=== PATIENT | male | born 1950 | race Caucasian/White ===

== ENCOUNTER 2017-05-29 23:28 | Inpatient (IN) | payer MEDICARE, MEDICAID ==
[~2017-05-29] VITALS: Ht 170.2 cm; Wt 154.5 kg
[~2017-05-29 23:28] MED LIST: ADV50500 IH; ALBU18HF2 IH; LISI-600 PO; NITR0.4T51 SL; ONDA8TAB9 PO; OXYC15TA88 PO
[2017-05-30 00:11] LABS: BASOPHILS % (AUTO) 0.1 % (0-1); EOSINOPHILS % (AUTO) 0.1 % (0-6); HEMATOCRIT 47.5 % (42.0-52.0); HEMOGLOBIN 16.3 g/dl (14.0-17.9); LYMPHOCYTES # (AUTO) 0.5 X10'3 (1.1-4.8); LYMPHOCYTES % (AUTO) 2.6 % (21-51); MEAN CORPUSCULAR HEMOGLOBIN 29.1 PG (27.0-31.0); MEAN CORPUSCULAR HGB CONC 34.2 % (33.0-36.5); MEAN CORPUSCULAR VOLUME 85.1 FL (78-98); MONOCYTES % (AUTO) 5.3 % (2-12); NEUTROPHILS # (AUTO) 17.8 X10'3 (1.8-7.7); NEUTROPHILS % (AUTO) 91.9 % (42-75); PLATELET COUNT 181 X10'3 (140-440); RED BLOOD COUNT 5.58 X10'6 (4.70-6.10); RED CELL DISTRIBUTION WIDTH 13.6 % (11.5-14.5); WHITE BLOOD COUNT 19.3 X10'3 (4.5-11.0)
[2017-05-30 00:26] LABS: PROTHROMBIN TIME 10.6 SECONDS (9.0-12.0)
[2017-05-30] MEDS ORDERED: normal saline 1000ML IV soln IVB ONE ×2 (00:30→02:05)
[2017-05-30 00:36] LABS: ALANINE AMINOTRANSFERASE 24 U/L (12-78); ALBUMIN 3.6 G/DL (3.4-5.0); ALBUMIN/GLOBULIN RATIO 0.9 (1.1-1.5); ALKALINE PHOSPHATASE 70 IU/L (46-116); AMYLASE 103 U/L (25-115); ANION GAP 9 (8-16); ASPARTATE AMINO TRANSFERASE 20 U/L (10-37); BILIRUBIN,TOTAL 0.9 MG/DL (0.1-1.0); BLOOD UREA NITROGEN 26 MG/DL (7-18); CALCIUM 9.2 MG/DL (8.5-10.1); CHLORIDE 107 MMOL/L (99-107); GLUCOSE 209 MG/DL (70-104); LIPASE 484 U/L (73-393); POTASSIUM 4.1 MMOL/L (3.5-5.1); SODIUM 142 MMOL/L (135-145); TOTAL CARBON DIOXIDE 26.4 MMOL/L (24-32); TOTAL PROTEIN 7.7 G/DL (6.4-8.2); eGFR 55 ML/MIN
[2017-05-30] MEDS ORDERED: ondansetron/PF 4mg/2ml inj IV ONE (02:30)
[2017-05-30] MEDS ORDERED: levoFLOXACIN-Levaquin 750MG/D5 150 ML IV ONE (03:00)
[2017-05-30] MEDS ORDERED: CefTRIAXone 2gm/NS 100ml IVPB 100 ML IV ONE (03:00)
[2017-05-30] MEDS ORDERED: magnesium hydroxide 30ml (MOM) UD suspension PO PRN (03:05)
[2017-05-30] MEDS ORDERED: acetaminophen 325mg tablet PO PRN ×2 (03:05)
[2017-05-30] MEDS ORDERED: diphenhydrAMINE 50 mg/ml inj IV PRN (03:05)
[2017-05-30] MEDS ORDERED: mag hydrox/Alum hydrox/simeth 30ml oral suspension PO PRN (03:05)
[2017-05-30] MEDS ORDERED: diphenhydrAMINE 25mg capsule PO PRN (03:05)
[2017-05-30] MEDS ORDERED: MESSAGE TO PHARMACY PO ONE (03:05)
[2017-05-30] MEDS ORDERED: glucagon, human recombinant 1mg kit SUBCUT PRN (03:05)
[2017-05-30] MEDS ORDERED: HYDROcodone/acetaminophen 10/325mg tab PO PRN (03:05)
[2017-05-30] MEDS ORDERED: insulin Lispro (HumaLOG) vial - multi-dose SQ SCH (03:05)
[2017-05-30] MEDS ORDERED: dextrose ORAL solution 15 GM/59 ML bottle PO PRN ×2 (03:05)
[2017-05-30] MEDS ORDERED: morphine 2 MG/ML inj. syringe IV PRN (03:05)
[2017-05-30] MEDS ORDERED: dextrose 50%-water 50ml dispensing syringe IV PRN ×2 (03:05)
[2017-05-30] MEDS ORDERED: non-formulary drug (Albuterol Sulfate (Ventolin Hfa) 2 PUFFS) IH SCH (03:15)
[2017-05-30] MEDS ORDERED: nitroGLYCERIN 0.4mg SUBLingual tab SL PRN (03:15)
[2017-05-30 03:36] LABS: CLARITY,URINE CLEAR (Clear); COLOR,URINE YELLOW (Yellow); GLUCOSE, URINE NEGATIVE (Neg); KETONES,URINE NEGATIVE (Neg); LEUKOCYTE ESTERASE ,URINE NEGATIVE (Neg); NITRITES, URINE NEGATIVE (Neg); OCCULT BLOOD,URINE NEGATIVE (Neg); PH,URINE 5.5 (4.8-8.0); PROTEIN,URINE NEGATIVE (Neg); UROBILINOGEN,URINE 0.2 E.U/dL (0.2-1.0)
[2017-05-30 03:52] LABS: UA COLLECTION TYPE CLN CATCH MIDSTREAM
[2017-05-30 04:14] LABS: HEMOGLOBIN A1C 5.6 % (4.5-6.2)
[2017-05-30] MEDS ORDERED: albuterol 2.5 MG/3 ML nebule NEB PRN (04:25)
[2017-05-30] MEDS ORDERED: oxyCODONE IR 5mg (immed. release) tablet PO PRN (04:25)
[2017-05-30 04:36] LABS: OCCULT BLOOD STOOL NEGATIVE (Neg)
[2017-05-30] MEDS: normal saline 1000ml 1,000 ML IV SCH ×3 (04:56→23:04)
[2017-05-30] MEDS ORDERED: SALMETEROL IH SCH (08:00)
[2017-05-30] MEDS ORDERED: FLUTICASONE IH SCH (08:00)
[2017-05-30 08:35] VITALS: BP 132/105
[2017-05-30] MEDS: lisinopril 20mg tablet PO SCH (09:44)
[2017-05-30] MEDS: enoxaparin 40mg/0.4ml syringe SUBCUT SCH (09:45)
[2017-05-30 11:00] VITALS: BP 130/67
[2017-05-30 15:00] VITALS: BP 134/68
[2017-05-30 19:00] VITALS: BP 102/64
[2017-05-30] MEDS: ondansetron/PF 4mg/2ml inj IV PRN (19:57)
[2017-05-30] MEDS: pantoprazole 40 MG vial IV SCH (19:57)
[2017-05-30] MEDS: insulin glargine (Lantus) pen - multi-dose SQ SCH (21:00)
[2017-05-30] MEDS ORDERED: temazepam 15mg capsule PO PRN (21:00)
[2017-05-30 22:00] VITALS: BP 106/44
[2017-05-30] MEDS: fluticasone/vilanterol 200mcg/25mcg inhaler IH SCH (23:24)
[2017-05-31] MEDS: normal saline 1000ml 1,000 ML IV SCH ×2 (02:12→20:31)
[2017-05-31 02:28] VITALS: BP 121/66
[2017-05-31] MEDS: levoFLOXACIN-Levaquin 750MG/D5 150 ML IV SCH ×2 (04:00→08:10)
[2017-05-31 06:00] VITALS: BP_SYST 104; BP_SYST 133; BP_DIAS 48; BP_DIAS 67
[2017-05-31 06:19] LABS: BASOPHILS % (AUTO) 0.3 % (0-1); EOSINOPHILS # (AUTO) 0.1 X10'3 (0-0.9); EOSINOPHILS % (AUTO) 1.2 % (0-6); HEMATOCRIT 40.1 % (42.0-52.0); HEMOGLOBIN 14.1 g/dl (14.0-17.9); LYMPHOCYTES # (AUTO) 1.2 X10'3 (1.1-4.8); LYMPHOCYTES % (AUTO) 10.3 % (21-51); MEAN CORPUSCULAR HEMOGLOBIN 29.6 PG (27.0-31.0); MEAN CORPUSCULAR VOLUME 84.7 FL (78-98); MEAN PLATELET VOLUME 7.6 FL (7.4-10.4); MONOCYTES # (AUTO) 1.3 X10'3 (0-0.9); NEUTROPHILS # (AUTO) 9.1 X10'3 (1.8-7.7); NEUTROPHILS % (AUTO) 77.2 % (42-75); PLATELET COUNT 135 X10'3 (140-440); RED BLOOD COUNT 4.74 X10'6 (4.70-6.10); RED CELL DISTRIBUTION WIDTH 13.9 % (11.5-14.5); WHITE BLOOD COUNT 11.8 X10'3 (4.5-11.0)
[2017-05-31 06:40] LABS: ALBUMIN 2.6 G/DL (3.4-5.0); ANION GAP 8 (8-16); BLOOD UREA NITROGEN 16 MG/DL (7-18); BUN/CREATININE RATIO 14.2 (5.4-32.0); CALCIUM 7.9 MG/DL (8.5-10.1); CHLORIDE 109 MMOL/L (99-107); CREATININE 1.13 MG/DL (0.60-1.10); GLUCOSE 101 MG/DL (70-104); MAGNESIUM 1.8 MG/DL (1.5-2.4); POTASSIUM 4.1 MMOL/L (3.5-5.1); SODIUM 145 MMOL/L (135-145); eGFR 65 ML/MIN
[2017-05-31] MEDS: lisinopril 20mg tablet PO SCH (08:10)
[2017-05-31] MEDS: pantoprazole 40 MG vial IV SCH (08:10)
[2017-05-31] MEDS: enoxaparin 40mg/0.4ml syringe SUBCUT SCH (08:11)
[2017-05-31] MEDS: fluticasone/vilanterol 200mcg/25mcg inhaler IH SCH (08:12)
[2017-05-31 15:00] VITALS: BP 105/69
[2017-05-31 18:00] VITALS: BP 151/52
[2017-05-31] MEDS: insulin glargine (Lantus) pen - multi-dose SQ SCH (21:00)
[2017-05-31] MEDS ORDERED: diltiazem-D5W 125mg/125ml 125 ML IV SCH (21:40)
[2017-05-31 22:00] VITALS: BP 137/72
[2017-06-01] VITALS (11 sets, daily range): BP systolic 117–147; BP diastolic 46–85
[2017-06-01] MEDS: normal saline 1000ml 1,000 ML IV SCH ×2 (05:39→14:35)
[2017-06-01 06:53] LABS: BASOPHILS # (AUTO) 0.1 X10'3 (0-0.2); BASOPHILS % (AUTO) 0.6 % (0-1); EOSINOPHILS # (AUTO) 0.2 X10'3 (0-0.9); EOSINOPHILS % (AUTO) 2.1 % (0-6); HEMATOCRIT 40.9 % (42.0-52.0); LYMPHOCYTES # (AUTO) 1.3 X10'3 (1.1-4.8); LYMPHOCYTES % (AUTO) 12.8 % (21-51); MEAN CORPUSCULAR HEMOGLOBIN 29.3 PG (27.0-31.0); MEAN CORPUSCULAR HGB CONC 34.2 % (33.0-36.5); MEAN CORPUSCULAR VOLUME 85.6 FL (78-98); MEAN PLATELET VOLUME 8.3 FL (7.4-10.4); MONOCYTES # (AUTO) 1.2 X10'3 (0-0.9); MONOCYTES % (AUTO) 11.9 % (2-12); NEUTROPHILS # (AUTO) 7.6 X10'3 (1.8-7.7); NEUTROPHILS % (AUTO) 72.6 % (42-75); PLATELET COUNT 130 X10'3 (140-440); RED BLOOD COUNT 4.78 X10'6 (4.70-6.10); RED CELL DISTRIBUTION WIDTH 13.6 % (11.5-14.5); WHITE BLOOD COUNT 10.4 X10'3 (4.5-11.0)
[2017-06-01 06:58] LABS: ALBUMIN 2.4 G/DL (3.4-5.0); ANION GAP 8 (8-16); BLOOD UREA NITROGEN 16 MG/DL (7-18); BUN/CREATININE RATIO 14.5 (5.4-32.0); CALCIUM 8.2 MG/DL (8.5-10.1); CHLORIDE 107 MMOL/L (99-107); GLUCOSE 99 MG/DL (70-104); MAGNESIUM 1.9 MG/DL (1.5-2.4); SODIUM 142 MMOL/L (135-145); TOTAL CARBON DIOXIDE 27.1 MMOL/L (24-32); eGFR 67 ML/MIN
[2017-06-01] MEDS: fluticasone/vilanterol 200mcg/25mcg inhaler IH SCH (08:00)
[2017-06-01] MEDS ORDERED: potassium Cl 20 mEq SR tablet PO SCH (08:30)
[2017-06-01] MEDS: pantoprazole 40 MG vial IV SCH (08:47)
[2017-06-01] MEDS: furosemide 20 MG/2 ML vial IV SCH ×2 (08:47→19:51)
[2017-06-01] MEDS: levoFLOXACIN-Levaquin 750MG/D5 150 ML IV SCH (08:47)
[2017-06-01] MEDS: lisinopril 20mg tablet PO SCH (08:47)
[2017-06-01] MEDS: enoxaparin 40mg/0.4ml syringe SUBCUT SCH (08:48)
[2017-06-01] MEDS: diltiazem 30mg tablet PO SCH ×2 (13:58→19:34)
[2017-06-01] MEDS: lactobacillus rhamnosus 10,000 MMU CELLS/CAPSULE PO SCH (19:34)
[2017-06-01] MEDS: insulin glargine (Lantus) pen - multi-dose SQ SCH (21:00)
[2017-06-01] MEDS: potassium chloride 10mEq ER tablet PO SCH (21:16)
[2017-06-02] MEDS: diltiazem 30mg tablet PO SCH ×4 (02:53→19:16)
[2017-06-02 03:00] VITALS: BP 116/69
[2017-06-02] MEDS: normal saline 1000ml 1,000 ML IV SCH ×2 (03:10→11:04)
[2017-06-02 06:00] VITALS: BP 127/78
[2017-06-02 06:04] LABS: BASOPHILS % (AUTO) 0.5 % (0-1); EOSINOPHILS # (AUTO) 0.3 X10'3 (0-0.9); EOSINOPHILS % (AUTO) 3.9 % (0-6); HEMATOCRIT 40.6 % (42.0-52.0); HEMOGLOBIN 14.3 g/dl (14.0-17.9); LYMPHOCYTES # (AUTO) 1.4 X10'3 (1.1-4.8); MEAN CORPUSCULAR HEMOGLOBIN 29.4 PG (27.0-31.0); MEAN CORPUSCULAR HGB CONC 35.2 % (33.0-36.5); MEAN CORPUSCULAR VOLUME 83.5 FL (78-98); MONOCYTES # (AUTO) 0.8 X10'3 (0-0.9); MONOCYTES % (AUTO) 10.9 % (2-12); NEUTROPHILS % (AUTO) 66.7 % (42-75); PLATELET COUNT 150 X10'3 (140-440); RED BLOOD COUNT 4.87 X10'6 (4.70-6.10); RED CELL DISTRIBUTION WIDTH 12.9 % (11.5-14.5); WHITE BLOOD COUNT 7.5 X10'3 (4.5-11.0)
[2017-06-02 06:17] LABS: ALBUMIN 2.5 G/DL (3.4-5.0); ANION GAP 7 (8-16); BLOOD UREA NITROGEN 14 MG/DL (7-18); BUN/CREATININE RATIO 13.3 (5.4-32.0); CALCIUM 8.4 MG/DL (8.5-10.1); CHLORIDE 107 MMOL/L (99-107); CREATININE 1.05 MG/DL (0.60-1.10); GLUCOSE 104 MG/DL (70-104); MAGNESIUM 1.8 MG/DL (1.5-2.4); POTASSIUM 4.1 MMOL/L (3.5-5.1); SODIUM 144 MMOL/L (135-145); TOTAL CARBON DIOXIDE 29.9 MMOL/L (24-32); eGFR 71 ML/MIN
[2017-06-02] MEDS: furosemide 20 MG/2 ML vial IV SCH ×2 (08:00→19:16)
[2017-06-02] MEDS: fluticasone/vilanterol 200mcg/25mcg inhaler IH SCH (08:00)
[2017-06-02] MEDS: potassium chloride 10mEq ER tablet PO SCH ×2 (08:00→19:16)
[2017-06-02] MEDS: levoFLOXACIN-Levaquin 750MG/D5 150 ML IV SCH (08:03)
[2017-06-02] MEDS: pantoprazole 40mg Tablet.DR PO SCH (08:03)
[2017-06-02] MEDS: lisinopril 20mg tablet PO SCH (08:03)
[2017-06-02] MEDS: lactobacillus rhamnosus 10,000 MMU CELLS/CAPSULE PO SCH ×2 (08:04→19:16)
[2017-06-02] MEDS: enoxaparin 40mg/0.4ml syringe SUBCUT SCH (08:05)
[2017-06-02 11:00] VITALS: BP 128/85
[2017-06-02] MEDS ORDERED: furosemide 20 MG/2 ML vial IV ONE (12:10)
[2017-06-02] MEDS ORDERED: FURO20TA4 (12:58)
[2017-06-02] MEDS ORDERED: ASPI-1264 PO (12:59)
[2017-06-02 13:28] LABS: GASTRIC OCCULT BLOOD NEGATIVE (Neg)
[2017-06-02 15:00] VITALS: BP 146/78
[2017-06-02 19:00] VITALS: BP 136/75
[2017-06-02] MEDS: insulin glargine (Lantus) pen - multi-dose SQ SCH (21:00)
[2017-06-02] MEDS: ondansetron/PF 4mg/2ml inj IV PRN (22:25)
[2017-06-02 23:00] VITALS: BP 101/66
[2017-06-03 03:00] VITALS: BP 124/65
[2017-06-03] MEDS: diltiazem 30mg tablet PO SCH ×2 (03:05→08:53)
[2017-06-03 06:49] LABS: BASOPHILS % (AUTO) 0.4 % (0-1); EOSINOPHILS # (AUTO) 0.3 X10'3 (0-0.9); EOSINOPHILS % (AUTO) 3.9 % (0-6); HEMATOCRIT 47.7 % (42.0-52.0); HEMOGLOBIN 16.5 g/dl (14.0-17.9); LYMPHOCYTES # (AUTO) 1.3 X10'3 (1.1-4.8); MEAN CORPUSCULAR HEMOGLOBIN 29.4 PG (27.0-31.0); MEAN CORPUSCULAR HGB CONC 34.6 % (33.0-36.5); MEAN CORPUSCULAR VOLUME 84.9 FL (78-98); MEAN PLATELET VOLUME 7.8 FL (7.4-10.4); MONOCYTES # (AUTO) 0.9 X10'3 (0-0.9); MONOCYTES % (AUTO) 10.8 % (2-12); NEUTROPHILS # (AUTO) 6.1 X10'3 (1.8-7.7); NEUTROPHILS % (AUTO) 69.9 % (42-75); PLATELET COUNT 178 X10'3 (140-440); RED BLOOD COUNT 5.61 X10'6 (4.70-6.10); RED CELL DISTRIBUTION WIDTH 13.1 % (11.5-14.5); WHITE BLOOD COUNT 8.8 X10'3 (4.5-11.0)
[2017-06-03 07:00] VITALS: BP 142/85
[2017-06-03 07:07] LABS: ALBUMIN 2.9 G/DL (3.4-5.0); ANION GAP 12 (8-16); BLOOD UREA NITROGEN 16 MG/DL (7-18); BUN/CREATININE RATIO 13.8 (5.4-32.0); CALCIUM 9.1 MG/DL (8.5-10.1); CHLORIDE 104 MMOL/L (99-107); CREATININE 1.16 MG/DL (0.60-1.10); GLUCOSE 107 MG/DL (70-104); POTASSIUM 3.9 MMOL/L (3.5-5.1); SODIUM 142 MMOL/L (135-145); TOTAL CARBON DIOXIDE 25.9 MMOL/L (24-32); eGFR 63 ML/MIN
[2017-06-03] MEDS: potassium chloride 10mEq ER tablet PO SCH (08:53)
[2017-06-03] MEDS: lisinopril 20mg tablet PO SCH (08:53)
[2017-06-03] MEDS: lactobacillus rhamnosus 10,000 MMU CELLS/CAPSULE PO SCH (08:53)
[2017-06-03] MEDS: pantoprazole 40mg Tablet.DR PO SCH (08:53)
[2017-06-03] MEDS: enoxaparin 40mg/0.4ml syringe SUBCUT SCH (08:54)
[2017-06-03] MEDS: furosemide 20 MG/2 ML vial IV SCH (08:54)
[2017-06-03] MEDS ORDERED: DILT30TA5 PO (09:29)
[2017-06-03 11:00] VITALS: BP 128/84
[2017-06-03] MEDS ORDERED: levoFLOXACIN 750MG TABLET PO SCH (11:00)
== END 2017-06-03 13:00 | disposition home or self-care (01) | DRG 871 ==
LOC: ER 23:30 → ED HOLD 05-30 03:04 → PCU 3S 05-30 08:26
PROVIDERS: ADMIT Hospitalist; ATTEND Family Medicine
DX: A41.9 Sepsis, unspecified organism (principal); K85.90 Acute pancreatitis without necrosis or infection, unspecified; E11.51 Type 2 diabetes mellitus with diabetic peripheral angiopathy without gangrene; E11.622 Type 2 diabetes mellitus with other skin ulcer; L97.929 Non-pressure chronic ulcer of unspecified part of left lower leg with unspecified severity; J44.1 Chronic obstructive pulmonary disease with (acute) exacerbation; I48.91 Unspecified atrial fibrillation; J22 Unspecified acute lower respiratory infection; J20.9 Acute bronchitis, unspecified; K57.90 Diverticulosis of intestine, part unspecified, without perforation or abscess without bleeding; I87.8 Other specified disorders of veins; F32.9 Major depressive disorder, single episode, unspecified; G89.29 Other chronic pain; K80.20 Calculus of gallbladder without cholecystitis without obstruction; N28.1 Cyst of kidney, acquired; R06.03 Acute respiratory distress; I10 Essential (primary) hypertension; N28.89 Other specified disorders of kidney and ureter; I89.0 Lymphedema, not elsewhere classified; I25.10 Atherosclerotic heart disease of native coronary artery without angina pectoris; K21.9 Gastro-esophageal reflux disease without esophagitis; K40.90 Unilateral inguinal hernia, without obstruction or gangrene, not specified as recurrent; I25.2 Old myocardial infarction; Z90.49 Acquired absence of other specified parts of digestive tract; Z79.899 Other long term (current) drug therapy; Z87.891 Personal history of nicotine dependence
CPT/HCPCS: 36415; 71045; 74176; 76775; 80048; 80053; 81003; 82150; 82271; 82272; 82948; 83036; 83605; 83690; 83735; 83880; 84484; 85025; 85610; 86885; 86900; 86901; 87040; 87070; 87502; 87503; 93005; 93306; 94640; 94760; 96361; 96374; 97110; 97116; 99285; A6213; C9113; J0696; J1200; J1650; J1815; J1940; J1956; J2405; J3490; J7030; Q0163

== ENCOUNTER 2019-11-28 10:25 | Day surgery (SDC) | payer BC, MEDICAID ==
[~2019-11-28 10:25] MED LIST changes: +ASPI-1264 PO; +DILT30TA5 PO; +FURO20TA4; -ONDA8TAB9 PO; +OXYC15TA PO; -OXYC15TA88 PO
[2019-11-28] MEDS ORDERED: LIDOcaine 2% 5ml jelly ONE (11:54)
== END 2019-11-28 13:12 | disposition home or self-care (01) ==
LOC: WOUND CARE 10:25
PROVIDERS: ATTEND Nurse Practitioner
DX: E11.622 Type 2 diabetes mellitus with other skin ulcer (principal); I83.222 Varicose veins of left lower extremity with both ulcer of calf and inflammation; L97.222 Non-pressure chronic ulcer of left calf with fat layer exposed; I83.12 Varicose veins of left lower extremity with inflammation; I13.0 Hypertensive heart and chronic kidney disease with heart failure and stage 1 through stage 4 chronic kidney disease, or unspecified chronic kidney disease; I50.33 Acute on chronic diastolic (congestive) heart failure; N18.9 Chronic kidney disease, unspecified; E11.51 Type 2 diabetes mellitus with diabetic peripheral angiopathy without gangrene; I25.110 Atherosclerotic heart disease of native coronary artery with unstable angina pectoris; I89.0 Lymphedema, not elsewhere classified; J30.1 Allergic rhinitis due to pollen; K21.9 Gastro-esophageal reflux disease without esophagitis; I25.2 Old myocardial infarction; K80.20 Calculus of gallbladder without cholecystitis without obstruction; I48.91 Unspecified atrial fibrillation; E86.0 Dehydration; E66.01 Morbid (severe) obesity due to excess calories; E78.5 Hyperlipidemia, unspecified; J43.9 Emphysema, unspecified; G89.4 Chronic pain syndrome; G47.33 Obstructive sleep apnea (adult) (pediatric); F32.9 Major depressive disorder, single episode, unspecified; F17.200 Nicotine dependence, unspecified, uncomplicated; Z68.43 Body mass index [BMI] 50.0-59.9, adult; Z79.899 Other long term (current) drug therapy; Z98.890 Other specified postprocedural states; Z90.49 Acquired absence of other specified parts of digestive tract; Z79.82 Long term (current) use of aspirin; Z99.81 Dependence on supplemental oxygen; Z90.89 Acquired absence of other organs; Z79.2 Long term (current) use of antibiotics
CPT/HCPCS: 97597

== ENCOUNTER 2019-12-16 10:35 | Day surgery (SDC) | payer BC, MEDICAID ==
[2019-12-16] MEDS ORDERED: LIDOcaine 2% 5ml jelly ONE ×2 (11:12)
== END 2019-12-16 12:30 | disposition home or self-care (01) ==
LOC: WOUND CARE 10:35
PROVIDERS: ATTEND Nurse Practitioner
DX: E11.622 Type 2 diabetes mellitus with other skin ulcer (principal); I83.222 Varicose veins of left lower extremity with both ulcer of calf and inflammation; L97.222 Non-pressure chronic ulcer of left calf with fat layer exposed; I89.0 Lymphedema, not elsewhere classified; E11.22 Type 2 diabetes mellitus with diabetic chronic kidney disease; I50.33 Acute on chronic diastolic (congestive) heart failure; N18.4 Chronic kidney disease, stage 4 (severe); I13.0 Hypertensive heart and chronic kidney disease with heart failure and stage 1 through stage 4 chronic kidney disease, or unspecified chronic kidney disease; E11.51 Type 2 diabetes mellitus with diabetic peripheral angiopathy without gangrene; I83.12 Varicose veins of left lower extremity with inflammation; I25.110 Atherosclerotic heart disease of native coronary artery with unstable angina pectoris; J30.1 Allergic rhinitis due to pollen; K21.9 Gastro-esophageal reflux disease without esophagitis; I25.2 Old myocardial infarction; K80.20 Calculus of gallbladder without cholecystitis without obstruction; I48.91 Unspecified atrial fibrillation; E86.0 Dehydration; E66.01 Morbid (severe) obesity due to excess calories; E78.5 Hyperlipidemia, unspecified; J43.9 Emphysema, unspecified; G89.4 Chronic pain syndrome; G47.33 Obstructive sleep apnea (adult) (pediatric); F17.200 Nicotine dependence, unspecified, uncomplicated; Z68.43 Body mass index [BMI] 50.0-59.9, adult; Z79.899 Other long term (current) drug therapy; Z98.890 Other specified postprocedural states; Z90.49 Acquired absence of other specified parts of digestive tract; Z79.82 Long term (current) use of aspirin; Z79.2 Long term (current) use of antibiotics; Z99.81 Dependence on supplemental oxygen; Z90.89 Acquired absence of other organs
CPT/HCPCS: 87070; 87075; 87077; 87102; 87186; 97597; 97598

== ENCOUNTER 2019-12-29 12:10 | Day surgery (SDC) | payer BC, MEDICAID ==
[2019-12-29] MEDS ORDERED: LIDOcaine 2% 5ml jelly ONE (13:19)
== END 2019-12-29 14:00 | disposition home or self-care (01) ==
LOC: WOUND CARE 12:10
PROVIDERS: ATTEND Nurse Practitioner
DX: E11.622 Type 2 diabetes mellitus with other skin ulcer (principal); I83.222 Varicose veins of left lower extremity with both ulcer of calf and inflammation; L97.222 Non-pressure chronic ulcer of left calf with fat layer exposed; I13.0 Hypertensive heart and chronic kidney disease with heart failure and stage 1 through stage 4 chronic kidney disease, or unspecified chronic kidney disease; I50.33 Acute on chronic diastolic (congestive) heart failure; N18.9 Chronic kidney disease, unspecified; E11.51 Type 2 diabetes mellitus with diabetic peripheral angiopathy without gangrene; I25.110 Atherosclerotic heart disease of native coronary artery with unstable angina pectoris; I89.0 Lymphedema, not elsewhere classified; J30.1 Allergic rhinitis due to pollen; K21.9 Gastro-esophageal reflux disease without esophagitis; I25.2 Old myocardial infarction; K80.20 Calculus of gallbladder without cholecystitis without obstruction; I48.91 Unspecified atrial fibrillation; E86.0 Dehydration; E66.01 Morbid (severe) obesity due to excess calories; E78.5 Hyperlipidemia, unspecified; J43.9 Emphysema, unspecified; G89.4 Chronic pain syndrome; G47.33 Obstructive sleep apnea (adult) (pediatric); F32.9 Major depressive disorder, single episode, unspecified; F17.200 Nicotine dependence, unspecified, uncomplicated; Z68.43 Body mass index [BMI] 50.0-59.9, adult; Z79.899 Other long term (current) drug therapy; Z98.890 Other specified postprocedural states; Z90.49 Acquired absence of other specified parts of digestive tract; Z79.82 Long term (current) use of aspirin; Z99.81 Dependence on supplemental oxygen; Z90.89 Acquired absence of other organs; Z79.2 Long term (current) use of antibiotics
CPT/HCPCS: 97597

== ENCOUNTER 2020-01-05 12:20 | Day surgery (SDC) | payer BC, MEDICAID ==
[2020-01-05] MEDS ORDERED: LIDOcaine 2% 5ml jelly ONE (13:11)
== END 2020-01-05 14:10 | disposition home or self-care (01) ==
LOC: WOUND CARE 12:20
PROVIDERS: ATTEND Nurse Practitioner
DX: E11.622 Type 2 diabetes mellitus with other skin ulcer (principal); I83.222 Varicose veins of left lower extremity with both ulcer of calf and inflammation; L97.222 Non-pressure chronic ulcer of left calf with fat layer exposed; I89.0 Lymphedema, not elsewhere classified; I13.0 Hypertensive heart and chronic kidney disease with heart failure and stage 1 through stage 4 chronic kidney disease, or unspecified chronic kidney disease; I50.33 Acute on chronic diastolic (congestive) heart failure; N18.4 Chronic kidney disease, stage 4 (severe); E11.51 Type 2 diabetes mellitus with diabetic peripheral angiopathy without gangrene; I25.110 Atherosclerotic heart disease of native coronary artery with unstable angina pectoris; K21.9 Gastro-esophageal reflux disease without esophagitis; I25.2 Old myocardial infarction; K80.20 Calculus of gallbladder without cholecystitis without obstruction; I48.91 Unspecified atrial fibrillation; E86.0 Dehydration; E66.01 Morbid (severe) obesity due to excess calories; E78.5 Hyperlipidemia, unspecified; J43.9 Emphysema, unspecified; G89.4 Chronic pain syndrome; G47.33 Obstructive sleep apnea (adult) (pediatric); F32.9 Major depressive disorder, single episode, unspecified; Z68.43 Body mass index [BMI] 50.0-59.9, adult; Z79.899 Other long term (current) drug therapy; Z98.890 Other specified postprocedural states; Z90.49 Acquired absence of other specified parts of digestive tract; Z79.82 Long term (current) use of aspirin; Z99.81 Dependence on supplemental oxygen; Z90.89 Acquired absence of other organs; Z79.2 Long term (current) use of antibiotics; Z87.891 Personal history of nicotine dependence
CPT/HCPCS: 29580; 97597

== ENCOUNTER 2020-01-12 12:24 | Outpatient (CLI) | payer BC, MEDICAID ==
[2020-01-12] MEDS ORDERED: LIDOcaine 2% 5ml jelly ONE (12:55)
== END 2020-01-12 14:00 | disposition home or self-care (01) ==
LOC: WOUND CARE 12:24
PROVIDERS: ATTEND Nurse Practitioner
DX: E11.622 Type 2 diabetes mellitus with other skin ulcer (principal); I83.222 Varicose veins of left lower extremity with both ulcer of calf and inflammation; L97.222 Non-pressure chronic ulcer of left calf with fat layer exposed; I13.0 Hypertensive heart and chronic kidney disease with heart failure and stage 1 through stage 4 chronic kidney disease, or unspecified chronic kidney disease; I50.33 Acute on chronic diastolic (congestive) heart failure; N18.9 Chronic kidney disease, unspecified; E11.51 Type 2 diabetes mellitus with diabetic peripheral angiopathy without gangrene; I25.110 Atherosclerotic heart disease of native coronary artery with unstable angina pectoris; I89.0 Lymphedema, not elsewhere classified; J30.1 Allergic rhinitis due to pollen; K21.9 Gastro-esophageal reflux disease without esophagitis; I25.2 Old myocardial infarction; K80.20 Calculus of gallbladder without cholecystitis without obstruction; I48.91 Unspecified atrial fibrillation; E86.0 Dehydration; E66.01 Morbid (severe) obesity due to excess calories; E78.5 Hyperlipidemia, unspecified; J43.9 Emphysema, unspecified; G89.4 Chronic pain syndrome; G47.33 Obstructive sleep apnea (adult) (pediatric); F32.9 Major depressive disorder, single episode, unspecified; F17.200 Nicotine dependence, unspecified, uncomplicated; Z68.43 Body mass index [BMI] 50.0-59.9, adult; Z79.899 Other long term (current) drug therapy; Z98.890 Other specified postprocedural states; Z90.49 Acquired absence of other specified parts of digestive tract; Z79.82 Long term (current) use of aspirin; Z99.81 Dependence on supplemental oxygen; Z90.89 Acquired absence of other organs; Z79.2 Long term (current) use of antibiotics
CPT/HCPCS: 97597; 97598

== ENCOUNTER 2020-01-19 13:28 | Outpatient (CLI) | payer BC, MEDICAID ==
[2020-01-19] MEDS ORDERED: LIDOcaine 2% 5ml jelly ONE (14:59)
== END 2020-01-19 23:59 | disposition home or self-care (01) ==
LOC: WOUND CARE 13:28
PROVIDERS: ATTEND Nurse Practitioner
DX: E11.622 Type 2 diabetes mellitus with other skin ulcer (principal); I83.028 Varicose veins of left lower extremity with ulcer other part of lower leg; L97.822 Non-pressure chronic ulcer of other part of left lower leg with fat layer exposed; I89.0 Lymphedema, not elsewhere classified; I13.0 Hypertensive heart and chronic kidney disease with heart failure and stage 1 through stage 4 chronic kidney disease, or unspecified chronic kidney disease; N18.9 Chronic kidney disease, unspecified; I50.33 Acute on chronic diastolic (congestive) heart failure; E11.51 Type 2 diabetes mellitus with diabetic peripheral angiopathy without gangrene; I25.110 Atherosclerotic heart disease of native coronary artery with unstable angina pectoris; J30.1 Allergic rhinitis due to pollen; K21.9 Gastro-esophageal reflux disease without esophagitis; I25.2 Old myocardial infarction; K80.20 Calculus of gallbladder without cholecystitis without obstruction; I48.91 Unspecified atrial fibrillation; E86.0 Dehydration; E66.01 Morbid (severe) obesity due to excess calories; E78.5 Hyperlipidemia, unspecified; J43.9 Emphysema, unspecified; G89.4 Chronic pain syndrome; G47.33 Obstructive sleep apnea (adult) (pediatric); F32.9 Major depressive disorder, single episode, unspecified; Z68.43 Body mass index [BMI] 50.0-59.9, adult; Z79.899 Other long term (current) drug therapy; Z98.890 Other specified postprocedural states; Z90.49 Acquired absence of other specified parts of digestive tract; Z79.82 Long term (current) use of aspirin; Z99.81 Dependence on supplemental oxygen; Z90.89 Acquired absence of other organs; Z79.2 Long term (current) use of antibiotics; Z87.891 Personal history of nicotine dependence
CPT/HCPCS: 97597; 97598

== ENCOUNTER 2020-02-02 13:27 | Outpatient (CLI) | payer BC, MEDICAID ==
[2020-02-02] MEDS ORDERED: LIDOcaine 2% 5ml jelly ONE (14:03)
== END 2020-02-02 23:59 | disposition home or self-care (01) ==
LOC: WOUND CARE 13:27
PROVIDERS: ATTEND Nurse Practitioner
DX: E11.622 Type 2 diabetes mellitus with other skin ulcer (principal); I83.228 Varicose veins of left lower extremity with both ulcer of other part of lower extremity and inflammation; L97.822 Non-pressure chronic ulcer of other part of left lower leg with fat layer exposed; I83.222 Varicose veins of left lower extremity with both ulcer of calf and inflammation; L97.222 Non-pressure chronic ulcer of left calf with fat layer exposed; I13.0 Hypertensive heart and chronic kidney disease with heart failure and stage 1 through stage 4 chronic kidney disease, or unspecified chronic kidney disease; I50.33 Acute on chronic diastolic (congestive) heart failure; N18.4 Chronic kidney disease, stage 4 (severe); E11.51 Type 2 diabetes mellitus with diabetic peripheral angiopathy without gangrene; I25.110 Atherosclerotic heart disease of native coronary artery with unstable angina pectoris; I89.0 Lymphedema, not elsewhere classified; J30.1 Allergic rhinitis due to pollen; K21.9 Gastro-esophageal reflux disease without esophagitis; I25.2 Old myocardial infarction; K80.20 Calculus of gallbladder without cholecystitis without obstruction; I48.91 Unspecified atrial fibrillation; E86.0 Dehydration; E66.01 Morbid (severe) obesity due to excess calories; E78.5 Hyperlipidemia, unspecified; J43.9 Emphysema, unspecified; G89.4 Chronic pain syndrome; G47.33 Obstructive sleep apnea (adult) (pediatric); L30.8 Other specified dermatitis; F32.9 Major depressive disorder, single episode, unspecified; F17.200 Nicotine dependence, unspecified, uncomplicated; Z68.43 Body mass index [BMI] 50.0-59.9, adult; Z79.899 Other long term (current) drug therapy; Z98.890 Other specified postprocedural states; Z90.49 Acquired absence of other specified parts of digestive tract; Z79.82 Long term (current) use of aspirin; Z99.81 Dependence on supplemental oxygen; Z90.89 Acquired absence of other organs; Z79.2 Long term (current) use of antibiotics
CPT/HCPCS: 29581; 97597

== ENCOUNTER 2020-02-17 13:41 | Outpatient (CLI) | payer BC, MEDICAID ==
[2020-02-17] MEDS ORDERED: LIDOcaine 2% 5ml jelly ONE (14:34)
== END 2020-02-17 23:59 | disposition home or self-care (01) ==
LOC: WOUND CARE 13:41
PROVIDERS: ATTEND Nurse Practitioner
DX: E11.622 Type 2 diabetes mellitus with other skin ulcer (principal); I83.228 Varicose veins of left lower extremity with both ulcer of other part of lower extremity and inflammation; L97.822 Non-pressure chronic ulcer of other part of left lower leg with fat layer exposed; I83.222 Varicose veins of left lower extremity with both ulcer of calf and inflammation; L97.222 Non-pressure chronic ulcer of left calf with fat layer exposed; I13.0 Hypertensive heart and chronic kidney disease with heart failure and stage 1 through stage 4 chronic kidney disease, or unspecified chronic kidney disease; I50.33 Acute on chronic diastolic (congestive) heart failure; N18.4 Chronic kidney disease, stage 4 (severe); E11.51 Type 2 diabetes mellitus with diabetic peripheral angiopathy without gangrene; I25.110 Atherosclerotic heart disease of native coronary artery with unstable angina pectoris; I89.0 Lymphedema, not elsewhere classified; J30.1 Allergic rhinitis due to pollen; K21.9 Gastro-esophageal reflux disease without esophagitis; I25.2 Old myocardial infarction; K80.20 Calculus of gallbladder without cholecystitis without obstruction; I48.91 Unspecified atrial fibrillation; E86.0 Dehydration; E66.01 Morbid (severe) obesity due to excess calories; E78.5 Hyperlipidemia, unspecified; J43.9 Emphysema, unspecified; G89.4 Chronic pain syndrome; G47.33 Obstructive sleep apnea (adult) (pediatric); L30.8 Other specified dermatitis; F32.9 Major depressive disorder, single episode, unspecified; F17.200 Nicotine dependence, unspecified, uncomplicated; Z68.43 Body mass index [BMI] 50.0-59.9, adult; Z79.899 Other long term (current) drug therapy; Z98.890 Other specified postprocedural states; Z90.49 Acquired absence of other specified parts of digestive tract; Z79.82 Long term (current) use of aspirin; Z99.81 Dependence on supplemental oxygen; Z90.89 Acquired absence of other organs; Z79.2 Long term (current) use of antibiotics
CPT/HCPCS: 29581

== ENCOUNTER 2020-03-09 13:05 | Outpatient (CLI) | payer BC, MEDICAID ==
[2020-03-09] MEDS ORDERED: LIDOcaine 2% 5ml jelly ONE (13:45)
== END 2020-03-09 23:59 | disposition home or self-care (01) ==
LOC: WOUND CARE 13:05 → EDSTATUS 13:30 → WOUND CARE 23:59
PROVIDERS: ATTEND Nurse Practitioner
DX: E11.622 Type 2 diabetes mellitus with other skin ulcer (principal); I83.228 Varicose veins of left lower extremity with both ulcer of other part of lower extremity and inflammation; L97.822 Non-pressure chronic ulcer of other part of left lower leg with fat layer exposed; I83.222 Varicose veins of left lower extremity with both ulcer of calf and inflammation; L97.222 Non-pressure chronic ulcer of left calf with fat layer exposed; I13.0 Hypertensive heart and chronic kidney disease with heart failure and stage 1 through stage 4 chronic kidney disease, or unspecified chronic kidney disease; I50.33 Acute on chronic diastolic (congestive) heart failure; N18.4 Chronic kidney disease, stage 4 (severe); E11.51 Type 2 diabetes mellitus with diabetic peripheral angiopathy without gangrene; I25.110 Atherosclerotic heart disease of native coronary artery with unstable angina pectoris; I89.0 Lymphedema, not elsewhere classified; J30.1 Allergic rhinitis due to pollen; K21.9 Gastro-esophageal reflux disease without esophagitis; I25.2 Old myocardial infarction; K80.20 Calculus of gallbladder without cholecystitis without obstruction; I48.91 Unspecified atrial fibrillation; E86.0 Dehydration; E66.01 Morbid (severe) obesity due to excess calories; E78.5 Hyperlipidemia, unspecified; J43.9 Emphysema, unspecified; G89.4 Chronic pain syndrome; G47.33 Obstructive sleep apnea (adult) (pediatric); L30.8 Other specified dermatitis; F32.9 Major depressive disorder, single episode, unspecified; F17.200 Nicotine dependence, unspecified, uncomplicated; Z68.43 Body mass index [BMI] 50.0-59.9, adult; Z79.899 Other long term (current) drug therapy; Z98.890 Other specified postprocedural states; Z90.49 Acquired absence of other specified parts of digestive tract; Z79.82 Long term (current) use of aspirin; Z99.81 Dependence on supplemental oxygen; Z90.89 Acquired absence of other organs; Z79.2 Long term (current) use of antibiotics
CPT/HCPCS: G0463

== ENCOUNTER → 2020-05-31 | Outpatient (CLI) | payer BC, MEDICAID ==
[~2020-05-31] MED LIST changes: +LIDOcaine 2% 5ml jelly ONE; -LISI-600 PO; +LISI20TA28 PO
== END | disposition home or self-care (01) ==
LOC: WOUND CARE 10:10
PROVIDERS: ATTEND Nurse Practitioner
DX: E11.622 Type 2 diabetes mellitus with other skin ulcer (principal); I83.228 Varicose veins of left lower extremity with both ulcer of other part of lower extremity and inflammation; L97.822 Non-pressure chronic ulcer of other part of left lower leg with fat layer exposed; I83.222 Varicose veins of left lower extremity with both ulcer of calf and inflammation; L97.222 Non-pressure chronic ulcer of left calf with fat layer exposed; I83.018 Varicose veins of right lower extremity with ulcer other part of lower leg; L97.811 Non-pressure chronic ulcer of other part of right lower leg limited to breakdown of skin; I13.0 Hypertensive heart and chronic kidney disease with heart failure and stage 1 through stage 4 chronic kidney disease, or unspecified chronic kidney disease; I50.33 Acute on chronic diastolic (congestive) heart failure; N18.4 Chronic kidney disease, stage 4 (severe); E11.51 Type 2 diabetes mellitus with diabetic peripheral angiopathy without gangrene; I25.110 Atherosclerotic heart disease of native coronary artery with unstable angina pectoris; I89.0 Lymphedema, not elsewhere classified; J30.1 Allergic rhinitis due to pollen; K21.9 Gastro-esophageal reflux disease without esophagitis; K80.20 Calculus of gallbladder without cholecystitis without obstruction; I25.2 Old myocardial infarction; I48.91 Unspecified atrial fibrillation; E86.0 Dehydration; E66.01 Morbid (severe) obesity due to excess calories; E78.5 Hyperlipidemia, unspecified; J43.9 Emphysema, unspecified; G89.4 Chronic pain syndrome; G47.33 Obstructive sleep apnea (adult) (pediatric); L30.8 Other specified dermatitis; F32.9 Major depressive disorder, single episode, unspecified; F17.200 Nicotine dependence, unspecified, uncomplicated; Z68.43 Body mass index [BMI] 50.0-59.9, adult; Z79.899 Other long term (current) drug therapy; Z98.890 Other specified postprocedural states; Z90.49 Acquired absence of other specified parts of digestive tract; Z79.82 Long term (current) use of aspirin; Z99.81 Dependence on supplemental oxygen; Z90.89 Acquired absence of other organs; Z79.2 Long term (current) use of antibiotics
CPT/HCPCS: 11042; 11045

== ENCOUNTER 2020-08-30 15:50 | Inpatient (IN) | payer BC, MEDICAID ==
[~2020-08-30] VITALS: Ht 170.2 cm; Wt 146.4 kg
[~2020-08-30 15:50] MED LIST changes: -ADV50500 IH; -ALBU18HF2 IH; -ASPI-1264 PO; +ASPI-1265 PO; +DILT30TA2 PO; -DILT30TA5 PO; +FURO-150 PO; -FURO20TA4; -LIDOcaine 2% 5ml jelly ONE; -NITR0.4T51 SL; -OXYC15TA PO
[2020-08-30 17:03] LABS: BASOPHILS % (AUTO) 0.4 % (0-1); EOSINOPHILS # (AUTO) 0.1 X10'3 (0-0.9); HEMATOCRIT 42.5 % (42.0-52.0); HEMOGLOBIN 14.2 g/dl (14.0-17.9); LYMPHOCYTES # (AUTO) 1.3 X10'3 (1.1-4.8); LYMPHOCYTES % (AUTO) 9.7 % (21-51); MEAN CORPUSCULAR HEMOGLOBIN 29.4 PG (27.0-31.0); MEAN CORPUSCULAR HGB CONC 33.5 g/dL (33.0-36.5); MEAN CORPUSCULAR VOLUME 87.7 FL (78-98); MONOCYTES % (AUTO) 7.5 % (2-12); NEUTROPHILS % (AUTO) 81.4 % (42-75); PLATELET COUNT 185 X10'3 (140-440); RED BLOOD COUNT 4.84 X10'6 (4.70-6.10); RED CELL DISTRIBUTION WIDTH 14.3 % (11.5-14.5); WHITE BLOOD COUNT 13.5 X10'3 (4.5-11.0)
[2020-08-30 17:23] LABS: ALANINE AMINOTRANSFERASE 18 U/L (12-78); ALBUMIN/GLOBULIN RATIO 0.6 (1.1-1.5); ALKALINE PHOSPHATASE 60 IU/L (46-116); ANION GAP 9 (8-16); ASPARTATE AMINO TRANSFERASE 13 U/L (10-37); BILIRUBIN,TOTAL 2.8 MG/DL (0.1-1.0); BLOOD UREA NITROGEN 13 MG/DL (7-18); BUN/CREATININE RATIO 10.2 (5.4-32.0); CALCIUM 8.9 MG/DL (8.5-10.1); CHLORIDE 103 MMOL/L (99-107); CREATININE 1.27 MG/DL (0.60-1.10); GLUCOSE 112 MG/DL (70-104); POTASSIUM 3.8 MMOL/L (3.5-5.1); SODIUM 139 MMOL/L (135-145); TOTAL CARBON DIOXIDE 26.9 MMOL/L (24-32); TOTAL PROTEIN 8.4 G/DL (6.4-8.2); eGFR 56 ML/MIN
[2020-08-30] MEDS ORDERED: levoFLOXACIN-Levaquin 750MG/D5 150 ML IV ONE (22:30)
[2020-08-30 23:31] LABS: CLARITY,URINE CLOUDY (Clear); GLUCOSE, URINE NEGATIVE (Neg); KETONES,URINE TRACE mg/dl (Neg); LEUKOCYTE ESTERASE ,URINE NEGATIVE (Neg); NITRITES, URINE NEGATIVE (Neg); OCCULT BLOOD,URINE LARGE (Neg); PH,URINE 5.5 (4.8-8.0); PROTEIN,URINE 30 mg/dl (Neg)
[2020-08-30 23:34] LABS: COLOR,URINE DARK YELLOW (Yellow); UA COLLECTION TYPE CLN CATCH MIDSTREAM
[2020-08-30 23:38] LABS: AMORPHOUS URATES 3+; BACTERIA,URINE NONE SEEN /HPF (Neg); WBC,URINE NONE SEEN /HPF (0-4)
[2020-08-30 23:39] LABS: MUCUS STRANDS MODERATE /LPF (Neg); SQUAMOUS EPITHELIAL CELL,UR FEW /LPF (FEW)
[2020-08-31] MEDS ORDERED: mag hydrox/Alum hydrox/simeth 30ml oral suspension PO PRN (02:55)
[2020-08-31] MEDS ORDERED: magnesium hydroxide 30ml (MOM) UD suspension PO PRN (02:55)
[2020-08-31] MEDS ORDERED: ondansetron/PF 4mg/2ml inj IV PRN (02:55)
[2020-08-31] MEDS ORDERED: acetaminophen 325mg tablet PO PRN (02:55)
[2020-08-31] MEDS ORDERED: insulin Lispro (HumaLOG) vial - multi-dose SQ SCH (03:00)
[2020-08-31] MEDS ORDERED: dextrose ORAL solution 15 GM/59 ML bottle PO PRN ×2 (03:00)
[2020-08-31] MEDS ORDERED: glucagon, human recombinant 1mg kit SUBCUT PRN (03:00)
[2020-08-31] MEDS ORDERED: dextrose 50%-water 50ml dispensing syringe IV PRN ×2 (03:00)
[2020-08-31] MEDS ORDERED: MESSAGE TO PHARMACY PO ONE (03:00)
[2020-08-31 03:30] LABS: HEMOGLOBIN A1C 5.6 % (4.5-6.2)
[2020-08-31] MEDS: vancomycin/NS 1 GM ADD-VANTAGE 250 ML IV SCH ×2 (04:37→15:30)
--- NOTE | 2020-08-31 06:45 | NUR ---
Received report from KELSEY Barton. Awaiting patient arrival.
[2020-08-31 07:30] VITALS: BP 131/76
[2020-08-31] MEDS: aspirin 81mg tab.chew PO SCH (07:48)
[2020-08-31] MEDS: lisinopril 20mg tablet PO SCH (07:49)
[2020-08-31] MEDS: diltiazem 30mg tablet PO SCH ×3 (07:49→19:42)
[2020-08-31] MEDS: heparin, porcine 5000 units/ml vial SQ SCH ×2 (07:50→19:42)
[2020-08-31] MEDS: CefTRIAXone 2gm/D5W 50ml BAG 50 ML IV SCH (07:51)
[2020-08-31 11:00] VITALS: BP 134/65
[2020-08-31 14:38] LABS: BASOPHILS # (AUTO) 0.1 X10'3 (0-0.2); EOSINOPHILS # (AUTO) 0.2 X10'3 (0-0.9); EOSINOPHILS % (AUTO) 1.7 % (0-6); HEMATOCRIT 40.5 % (42.0-52.0); HEMOGLOBIN 13.5 g/dl (14.0-17.9); LYMPHOCYTES # (AUTO) 1.1 X10'3 (1.1-4.8); MEAN CORPUSCULAR HEMOGLOBIN 29.2 PG (27.0-31.0); MEAN CORPUSCULAR HGB CONC 33.3 g/dL (33.0-36.5); MEAN CORPUSCULAR VOLUME 87.8 FL (78-98); MEAN PLATELET VOLUME 8.1 FL (7.4-10.4); MONOCYTES % (AUTO) 8.8 % (2-12); NEUTROPHILS # (AUTO) 8.8 X10'3 (1.8-7.7); NEUTROPHILS % (AUTO) 78.5 % (42-75); PLATELET COUNT 169 X10'3 (140-440); RED BLOOD COUNT 4.62 X10'6 (4.70-6.10); RED CELL DISTRIBUTION WIDTH 14.2 % (11.5-14.5); WHITE BLOOD COUNT 11.2 X10'3 (4.5-11.0)
[2020-08-31 14:58] LABS: ALANINE AMINOTRANSFERASE 13 U/L (12-78); ALBUMIN 2.5 G/DL (3.4-5.0); ALBUMIN/GLOBULIN RATIO 0.5 (1.1-1.5); ALKALINE PHOSPHATASE 55 IU/L (46-116); ASPARTATE AMINO TRANSFERASE 10 U/L (10-37); BILIRUBIN,TOTAL 1.9 MG/DL (0.1-1.0); BLOOD UREA NITROGEN 15 MG/DL (7-18); CALCIUM 8.6 MG/DL (8.5-10.1); CREATININE 1.25 MG/DL (0.60-1.10); GLUCOSE 102 MG/DL (70-104); POTASSIUM 3.7 MMOL/L (3.5-5.1); SODIUM 141 MMOL/L (135-145); TOTAL CARBON DIOXIDE 28.8 MMOL/L (24-32); TOTAL PROTEIN 7.4 G/DL (6.4-8.2); eGFR 57 ML/MIN
[2020-08-31 15:07] LABS: ANION GAP 7 (8-16); CHLORIDE 105 MMOL/L (99-107)
[2020-08-31 18:15] VITALS: BP 121/54
--- NOTE | 2020-08-31 18:36 | NUR ---
Problems reprioritized. Patient report given, questions answered & plan of care reviewed with KELSEY Khan.
--- NOTE | 2020-08-31 18:43 | NUR ---
Patient in room [facility] 353. I have received report from ESTEVAN COLE and had the opportunity to ask questions and assume patient care. Addendum: 08/31/20 at 1844 by Erin Mills RN Amended: Links added.
[2020-08-31] MEDS: lactobacillus rhamnosus 10,000 MMU CELLS/CAPSULE PO SCH (19:42)
[2020-08-31] MEDS: mineral oil/petrolatum, white cream 113gm jar TP SCH (20:00)
[2020-09-01] VITALS: BP 135/94
[2020-09-01] MEDS: diltiazem 30mg tablet PO SCH ×4 (02:40→19:46)
[2020-09-01] MEDS: vancomycin/NS 1 GM ADD-VANTAGE 250 ML IV SCH (04:30)
--- NOTE | 2020-09-01 06:30 | NUR ---
Problems reprioritized. Patient report given, questions answered & plan of care reviewed with AMANDA COLE. Addendum: 09/01/20 at 0631 by Erin Mills RN Amended: Links added.
[2020-09-01 06:49] LABS: BASOPHILS # (AUTO) 0.1 X10'3 (0-0.2); BASOPHILS % (AUTO) 1.2 % (0-1); EOSINOPHILS # (AUTO) 0.4 X10'3 (0-0.9); EOSINOPHILS % (AUTO) 4.7 % (0-6); HEMOGLOBIN 13.1 g/dl (14.0-17.9); LYMPHOCYTES # (AUTO) 1.2 X10'3 (1.1-4.8); LYMPHOCYTES % (AUTO) 13.7 % (21-51); MEAN CORPUSCULAR HEMOGLOBIN 29.5 PG (27.0-31.0); MEAN CORPUSCULAR HGB CONC 33.5 g/dL (33.0-36.5); MEAN CORPUSCULAR VOLUME 87.9 FL (78-98); MEAN PLATELET VOLUME 8.3 FL (7.4-10.4); MONOCYTES # (AUTO) 0.8 X10'3 (0-0.9); MONOCYTES % (AUTO) 9.3 % (2-12); NEUTROPHILS % (AUTO) 71.1 % (42-75); PLATELET COUNT 178 X10'3 (140-440); RED BLOOD COUNT 4.44 X10'6 (4.70-6.10); RED CELL DISTRIBUTION WIDTH 14.5 % (11.5-14.5); WHITE BLOOD COUNT 8.4 X10'3 (4.5-11.0)
[2020-09-01 07:00] VITALS: BP 127/97
[2020-09-01 07:02] LABS: ALANINE AMINOTRANSFERASE 15 U/L (12-78); ALBUMIN 2.2 G/DL (3.4-5.0); ALBUMIN/GLOBULIN RATIO 0.5 (1.1-1.5); ALKALINE PHOSPHATASE 50 IU/L (46-116); ANION GAP 11 (8-16); ASPARTATE AMINO TRANSFERASE 13 U/L (10-37); BILIRUBIN,TOTAL 1.4 MG/DL (0.1-1.0); BLOOD UREA NITROGEN 14 MG/DL (7-18); BUN/CREATININE RATIO 12.5 (5.4-32.0); CHLORIDE 106 MMOL/L (99-107); CREATININE 1.12 MG/DL (0.60-1.10); GLUCOSE 93 MG/DL (70-104); POTASSIUM 3.7 MMOL/L (3.5-5.1); SODIUM 143 MMOL/L (135-145); TOTAL CARBON DIOXIDE 26.5 MMOL/L (24-32); TOTAL PROTEIN 6.9 G/DL (6.4-8.2); eGFR 65 ML/MIN
[2020-09-01] MEDS: lactobacillus rhamnosus 10,000 MMU CELLS/CAPSULE PO SCH ×2 (08:50→19:46)
[2020-09-01] MEDS: aspirin 81mg tab.chew PO SCH (08:50)
[2020-09-01] MEDS: lisinopril 20mg tablet PO SCH (08:52)
[2020-09-01] MEDS: mineral oil/petrolatum, white cream 113gm jar TP SCH ×2 (08:52→19:47)
[2020-09-01] MEDS: CefTRIAXone 2gm/D5W 50ml BAG 50 ML IV SCH (08:53)
[2020-09-01] MEDS: heparin, porcine 5000 units/ml vial SQ SCH ×2 (08:53→19:46)
[2020-09-01 11:00] VITALS: BP 134/33
[2020-09-01] MEDS ORDERED: VANCOMYCIN LEVEL IV ONE (15:30)
[2020-09-01] MEDS: VANCOmycin 1250MG/NS 250ml Bag 250 ML IV SCH (17:11)
--- NOTE | 2020-09-01 18:23 | NUR ---
Problems reprioritized. Patient report given, questions answered & plan of care reviewed with Erin COLE.
--- NOTE | 2020-09-01 18:42 | NUR ---
Patient in room [facility] 353. I have received report from AMANDA COLE and had the opportunity to ask questions and assume patient care. Addendum: 09/01/20 at 1842 by Erin Mills RN Amended: Links added.
[2020-09-01 19:00] VITALS: BP 156/81
--- NOTE | 2020-09-01 22:32 | NUR ---
pt refused MRSA swab to be done. c/o itchy back no rash noted and lotion applied to pt back.
--- NOTE | 2020-09-02 00:15 | NUR ---
pt awoke assisted up to ambulated to brp with cane to void. then assisted back into bed. tolerated well.
[2020-09-02 00:39] VITALS: BP 151/55
[2020-09-02] MEDS: diltiazem 30mg tablet PO SCH ×3 (01:22→14:30)
--- NOTE | 2020-09-02 01:30 | NUR ---
took zeinab Bobby then ready to doze off to sleep.
--- NOTE | 2020-09-02 04:00 | NUR ---
resting no changes.
[2020-09-02] MEDS: VANCOmycin 1250MG/NS 250ml Bag 250 ML IV SCH (04:31)
[2020-09-02 05:50] LABS: BASOPHILS # (AUTO) 0.1 X10'3 (0-0.2); BASOPHILS % (AUTO) 1.3 % (0-1); EOSINOPHILS # (AUTO) 0.5 X10'3 (0-0.9); EOSINOPHILS % (AUTO) 6.7 % (0-6); HEMATOCRIT 38.9 % (42.0-52.0); HEMOGLOBIN 13.2 g/dl (14.0-17.9); LYMPHOCYTES # (AUTO) 1.3 X10'3 (1.1-4.8); LYMPHOCYTES % (AUTO) 17.1 % (21-51); MEAN CORPUSCULAR HEMOGLOBIN 29.7 PG (27.0-31.0); MEAN CORPUSCULAR HGB CONC 33.9 g/dL (33.0-36.5); MEAN CORPUSCULAR VOLUME 87.6 FL (78-98); MEAN PLATELET VOLUME 8.3 FL (7.4-10.4); MONOCYTES # (AUTO) 0.8 X10'3 (0-0.9); MONOCYTES % (AUTO) 10.2 % (2-12); NEUTROPHILS # (AUTO) 4.8 X10'3 (1.8-7.7); NEUTROPHILS % (AUTO) 64.7 % (42-75); PLATELET COUNT 196 X10'3 (140-440); RED BLOOD COUNT 4.44 X10'6 (4.70-6.10); RED CELL DISTRIBUTION WIDTH 14.3 % (11.5-14.5); WHITE BLOOD COUNT 7.4 X10'3 (4.5-11.0)
[2020-09-02 05:59] LABS: ALANINE AMINOTRANSFERASE 17 U/L (12-78); ALBUMIN 2.3 G/DL (3.4-5.0); ALBUMIN/GLOBULIN RATIO 0.5 (1.1-1.5); ALKALINE PHOSPHATASE 48 IU/L (46-116); ANION GAP 7 (8-16); ASPARTATE AMINO TRANSFERASE 15 U/L (10-37); BILIRUBIN,TOTAL 0.8 MG/DL (0.1-1.0); BLOOD UREA NITROGEN 15 MG/DL (7-18); BUN/CREATININE RATIO 13.5 (5.4-32.0); CALCIUM 8.4 MG/DL (8.5-10.1); CHLORIDE 107 MMOL/L (99-107); CREATININE 1.11 MG/DL (0.60-1.10); GLUCOSE 93 MG/DL (70-104); POTASSIUM 3.6 MMOL/L (3.5-5.1); SODIUM 141 MMOL/L (135-145); TOTAL CARBON DIOXIDE 26.7 MMOL/L (24-32); TOTAL PROTEIN 7.1 G/DL (6.4-8.2); eGFR 66 ML/MIN
--- NOTE | 2020-09-02 06:07 | NUR ---
Problems reprioritized. Patient report given, questions answered & plan of care reviewed with AMANDA COLE. Addendum: 09/02/20 at 0607 by rEin Mills RN Amended: Links added.
[2020-09-02 07:00] VITALS: BP 103/82
[2020-09-02] MEDS: lactobacillus rhamnosus 10,000 MMU CELLS/CAPSULE PO SCH (08:20)
[2020-09-02] MEDS: aspirin 81mg tab.chew PO SCH (08:20)
[2020-09-02] MEDS: heparin, porcine 5000 units/ml vial SQ SCH (08:21)
[2020-09-02] MEDS: lisinopril 20mg tablet PO SCH (08:21)
[2020-09-02] MEDS: mineral oil/petrolatum, white cream 113gm jar TP SCH (08:22)
[2020-09-02] MEDS: CefTRIAXone 2gm/D5W 50ml BAG 50 ML IV SCH (08:22)
[2020-09-02] MEDS ORDERED: CLIN-91 PO (10:30)
[2020-09-02 12:00] VITALS: BP 136/76
--- NOTE | 2020-09-02 14:15 | NUR ---
PAGER ID: [phone] MESSAGE: Kenyetta [id number] surg RE: 353 Devon Bautista- PT sandra complete. Going to discharge now.
--- NOTE | 2020-09-02 16:18 | NUR ---
Patient was educated on follow Addendum: 09/02/20 at 1624 by Kenyetta Frey RN Patient was educated on follow up care, medications, and worsening symptoms. Patient stated he had a wound care appointment on Thursday. IV was removed and canula was intact. Patient was taken down by patient health care aide. All belongings sent went patient.
[2020-09-03] MEDS ORDERED: VANCOMYCIN LEVEL IV ONE (04:30)
== END 2020-09-02 16:16 | disposition home or self-care (01) | DRG 602 ==
LOC: ER 15:51 → ED HOLD 08-31 02:54 → SUR 3N 08-31 07:09
PROVIDERS: ADMIT Internal Medicine; ATTEND Internal Medicine
DX: L03.116 Cellulitis of left lower limb (principal); E43 Unspecified severe protein-calorie malnutrition; Z68.43 Body mass index [BMI] 50.0-59.9, adult; L03.115 Cellulitis of right lower limb; E11.9 Type 2 diabetes mellitus without complications; E66.01 Morbid (severe) obesity due to excess calories; F32.9 Major depressive disorder, single episode, unspecified; I10 Essential (primary) hypertension; Z60.2 Problems related to living alone; G89.29 Other chronic pain; I25.10 Atherosclerotic heart disease of native coronary artery without angina pectoris; K21.9 Gastro-esophageal reflux disease without esophagitis; I87.8 Other specified disorders of veins; J43.9 Emphysema, unspecified; Z79.82 Long term (current) use of aspirin; Z79.899 Other long term (current) drug therapy; Z90.49 Acquired absence of other specified parts of digestive tract; I25.2 Old myocardial infarction
CPT/HCPCS: 36415; 71045; 80053; 80202; 81001; 82948; 83036; 83605; 83735; 83880; 84145; 85025; 87040; 97116; 97161; 97530; 99285; G0378; J0696; J1644; J1815; J1956; J3370

== ENCOUNTER 2021-09-10 03:43 | Inpatient (IN) | payer BC, MEDICAID ==
[~2021-09-10] VITALS: Ht 170.2 cm; Wt 150.0 kg
[~2021-09-10 03:43] MED LIST changes: -FURO-150 PO
[2021-09-10] MEDS ORDERED: metoclopramide 5 mg/ml inj IV ONE (03:55)
[2021-09-10 04:04] LABS: BASOPHILS % (AUTO) 0.3 % (0-1); EOSINOPHILS # (AUTO) 0.1 X10'3 (0-0.9); EOSINOPHILS % (AUTO) 0.9 % (0-6); HEMATOCRIT 47.2 % (42.0-52.0); LYMPHOCYTES # (AUTO) 1.2 X10'3 (1.1-4.8); MEAN CORPUSCULAR HEMOGLOBIN 29.4 PG (27.0-31.0); MEAN CORPUSCULAR HGB CONC 33.9 g/dL (33.0-36.5); MEAN CORPUSCULAR VOLUME 86.8 FL (78-98); MEAN PLATELET VOLUME 7.6 FL (7.4-10.4); MONOCYTES # (AUTO) 0.3 X10'3 (0-0.9); MONOCYTES % (AUTO) 2.2 % (2-12); NEUTROPHILS # (AUTO) 11.4 X10'3 (1.8-7.7); NEUTROPHILS % (AUTO) 87.6 % (42-75); PLATELET COUNT 171 X10'3 (140-440); RED BLOOD COUNT 5.43 X10'6 (4.70-6.10); RED CELL DISTRIBUTION WIDTH 13.5 % (11.5-14.5)
--- NOTE | 2021-09-10 04:16 | NUR ---
Patient refusing flu and COVID swab at this time. Doctor notified.
[2021-09-10] MEDS ORDERED: acetaminophen 325mg tablet PO ONE ×2 (04:30→13:15)
[2021-09-10] MEDS ORDERED: diltiazem 5mg/ml 5ml inj. IV ONE (04:30)
[2021-09-10] MEDS ORDERED: normal saline 1000ml 1,000 ML IV ONE (04:30)
[2021-09-10 04:31] LABS: ALANINE AMINOTRANSFERASE 20 U/L (12-78); ALBUMIN 3.3 G/DL (3.4-5.0); ALBUMIN/GLOBULIN RATIO 0.8 (1.1-1.5); ALKALINE PHOSPHATASE 65 IU/L (46-116); ANION GAP 6 (8-16); ASPARTATE AMINO TRANSFERASE 17 U/L (10-37); BILIRUBIN,TOTAL 0.8 MG/DL (0.1-1.0); BLOOD UREA NITROGEN 23 MG/DL (7-18); BUN/CREATININE RATIO 16.1 (5.4-32.0); CALCIUM 9.1 MG/DL (8.5-10.1); CHLORIDE 104 MMOL/L (99-107); CREATININE 1.43 MG/DL (0.60-1.10); GLUCOSE 127 MG/DL (70-104); POTASSIUM 3.9 MMOL/L (3.5-5.1); SODIUM 142 MMOL/L (135-145); TOTAL CARBON DIOXIDE 32.5 MMOL/L (24-32); TOTAL PROTEIN 7.3 G/DL (6.4-8.2); eGFR 49 ML/MIN
[2021-09-10] MEDS ORDERED: normal saline 1000ML IV soln IVB ONE ×2 (07:45→08:55)
--- NOTE | 2021-09-10 07:56 | NUR ---
pt ambulated to bathroom and attempted to provide urine sample with no success. edmd foster aware and another liter of normal saline will be ordered per edmd.
--- NOTE | 2021-09-10 09:18 | NUR ---
attempted to straight cath pt twice, with help of yoko khanna paint laboratory technician with no success due to abnormal patient anatomy. laura foster aware and pt attempting to urinate on his own again
[2021-09-10 09:45] LABS: CLARITY,URINE SLIGHTLY CLOUDY (Clear); COLOR,URINE YELLOW (Yellow); GLUCOSE, URINE NEGATIVE (Neg); KETONES,URINE NEGATIVE (Neg); LEUKOCYTE ESTERASE ,URINE TRACE (Neg); NITRITES, URINE NEGATIVE (Neg); OCCULT BLOOD,URINE TRACE-INTACT (Neg); PROTEIN,URINE NEGATIVE (Neg); UROBILINOGEN,URINE 0.2 E.U/dL (0.2-1.0)
[2021-09-10 09:46] LABS: UA COLLECTION TYPE STRAIGHT CATH
[2021-09-10 09:55] LABS: BACTERIA,URINE 1+ /HPF (Neg); HYALINE CASTS 0-3 /LPF (NEGATIVE); MUCUS STRANDS MODERATE /LPF (Neg); SQUAMOUS EPITHELIAL CELL,UR MODERATE /LPF (FEW)
[2021-09-10 09:56] LABS: RBC,URINE 0-2 /HPF (0-2); WBC,URINE 0-4 /HPF (0-4)
--- NOTE | 2021-09-10 10:11 | NUR ---
MARCELLE JALLOH MADE AWARE THAT PT IS ON 3L NASAL CANNULA DUE TO OXYGEN BEING 89-92% ON ROOM AIR AND PT RESPIRATORY RATE INCREASED TO 30
[2021-09-10] MEDS ORDERED: vancomycin/NS 1 GM ADD-VANTAGE 250 ML IV ONE (10:20)
[2021-09-10] MEDS ORDERED: piperacillin/tazo 3.375gm/50ml 50 ML IV ONE (10:20)
[2021-09-10] MEDS ORDERED: DILT30TA10 PO (13:33)
[2021-09-10] MEDS ORDERED: LISI20TA28 PO (13:33)
[2021-09-10] MEDS ORDERED: magnesium Cl slow-release 64mg tablet PO PRN (14:25)
[2021-09-10] MEDS ORDERED: acetaminophen 650mg rectal suppository RC PRN (14:25)
[2021-09-10] MEDS ORDERED: ondansetron/PF 4mg/2ml inj IV PRN (14:25)
[2021-09-10] MEDS ORDERED: magnesium 2GM in 50ml NS 50 ML IV PRN (14:25)
[2021-09-10] MEDS ORDERED: magnesium 4gm in 100ml NS 100 ML IV PRN (14:25)
[2021-09-10] MEDS ORDERED: metoclopramide 5 mg/ml inj IV PRN (14:25)
[2021-09-10] MEDS ORDERED: potassium CL 10mEq/100ml bag 100 ML IV PRN (14:25)
[2021-09-10] MEDS ORDERED: POTASSIUM BICARB 20meq eff tab 20 MEQ TABLET.EFF PO PRN ×2 (14:25)
[2021-09-10 14:50] LABS: MAGNESIUM 1.8 MG/DL (1.5-2.4)
--- NOTE | 2021-09-10 15:07 | NUR ---
informed hospitalist randee that pt temperature recheck is still 100.4 after tylenol was given previously. she states "this is fine." also received verbal order to increase the ordered normal saline drip from 20ml/hour to 120ml/hour. order placed as received. dr jeff at pt bedside
[2021-09-10] MEDS: normal saline 1000ml 1,000 ML IV SCH ×2 (15:08→23:37)
--- NOTE | 2021-09-10 16:17 | NUR ---
spoke with pt friend geronimo mooney and given update with pt permission. geronimo callback number [phone]
--- NOTE | 2021-09-10 18:27 | NUR ---
PAGER ID: [phone] MESSAGE: ED bed 7, Aneudy Bautista, + blood culture gram positive cocci in cluster
[2021-09-10] MEDS: acetaminophen 325mg tablet PO PRN (19:36)
--- NOTE | 2021-09-10 19:36 | NUR ---
Received report from Shree ASIF RN. Patient to follow shortly.
[2021-09-10] MEDS: K and/or MAG REPLACEMENT MC SCH (20:00)
--- NOTE | 2021-09-10 20:00 | NUR ---
Patient arrived to floor on a gurney from ER. Pt. was transferred over to bed and VS initiated. Addendum: 09/10/21 at 2251 by Reva Skinner RN Patient was in no apparent pain/distress, just thirsty. Water pitcher and ice tea provided.
[2021-09-10 20:10] VITALS: BP 123/59
[2021-09-10 22:00] VITALS: BP 119/57
[2021-09-11] MEDS: acetaminophen 325mg tablet PO PRN ×3 (01:51→15:53)
[2021-09-11 02:00] VITALS: BP 139/59
--- NOTE | 2021-09-11 03:30 | NUR ---
Critical of gram positive cocci in pairs and short chains in anaerobic bottle. Pt. on rocephin, so no new orders per MD.
[2021-09-11] MEDS ORDERED: DEXTROSE 15 GM of carb/4 tabs (each vial/BOTTLE has 4 tablets) PO PRN ×2 (05:00)
[2021-09-11] MEDS ORDERED: dextrose 50%-water 50ml dispensing syringe IV PRN ×2 (05:00)
[2021-09-11] MEDS ORDERED: insulin Lispro (HumaLOG) vial - multi-dose SQ SCH (05:00)
[2021-09-11] MEDS ORDERED: MESSAGE TO PHARMACY PO ONE (05:00)
[2021-09-11] MEDS ORDERED: glucagon, human recombinant 1mg kit SUBCUT PRN (05:00)
[2021-09-11 06:00] VITALS: BP 113/44
--- NOTE | 2021-09-11 06:46 | NUR ---
Problems reprioritized. Patient report given, questions answered & plan of care reviewed with Kenna COLE.
[2021-09-11] MEDS: normal saline 1000ml 1,000 ML IV SCH ×3 (07:40→21:33)
[2021-09-11] MEDS: K and/or MAG REPLACEMENT MC SCH ×2 (08:00→20:00)
[2021-09-11] MEDS: cefTRIAXone 1g/NS 100ml IVPB 100 ML IV SCH (08:45)
--- NOTE | 2021-09-11 09:25 | NUR ---
Initial: Pt admitted w/ sepsis, UTI, and inguinal hernia per EMR. Currently on Heart Healthy/Carb control diet pending PO intake at this time. TC to RN recommendation to remove carb control diet given no DM hx in EMR and last A1c one year ago was 5.6. LBM 09/08. Will continue to monitor PO trends to determine if ONS or additional protein w/ meals will be more appropriate intervention. Recs: 1. Continue Heart Healthy diet, remove Carb control diet, no DM hx in EMR 2. Monitor need for ONS vs additional protein w/ meals 3. Bowel care per rx 4. Scaled wts Addendum: 09/11/21 at [address] Amended: Links added.
[2021-09-11 10:33] LABS: BASOPHILS % (AUTO) 0.2 % (0-1); EOSINOPHILS % (AUTO) 0.1 % (0-6); HEMATOCRIT 41.1 % (42.0-52.0); HEMOGLOBIN 13.7 g/dl (14.0-17.9); LYMPHOCYTES # (AUTO) 0.6 X10'3 (1.1-4.8); MEAN CORPUSCULAR HEMOGLOBIN 29.3 PG (27.0-31.0); MEAN CORPUSCULAR HGB CONC 33.4 g/dL (33.0-36.5); MEAN CORPUSCULAR VOLUME 87.7 FL (78-98); MEAN PLATELET VOLUME 8.4 FL (7.4-10.4); MONOCYTES # (AUTO) 0.5 X10'3 (0-0.9); MONOCYTES % (AUTO) 2.6 % (2-12); NEUTROPHILS # (AUTO) 17.5 X10'3 (1.8-7.7); NEUTROPHILS % (AUTO) 94.1 % (42-75); PLATELET COUNT 139 X10'3 (140-440); RED BLOOD COUNT 4.69 X10'6 (4.70-6.10); RED CELL DISTRIBUTION WIDTH 13.5 % (11.5-14.5); WHITE BLOOD COUNT 18.7 X10'3 (4.5-11.0)
[2021-09-11 11:00] VITALS: BP 92/51
[2021-09-11 11:08] LABS: ALBUMIN 2.3 G/DL (3.4-5.0); ANION GAP 6 (8-16); BLOOD UREA NITROGEN 19 MG/DL (7-18); BUN/CREATININE RATIO 15.4 (5.4-32.0); CALCIUM 7.9 MG/DL (8.5-10.1); CHLORIDE 106 MMOL/L (99-107); CREATININE 1.23 MG/DL (0.60-1.10); GLUCOSE 135 MG/DL (70-104); MAGNESIUM 1.7 MG/DL (1.5-2.4); POTASSIUM 3.8 MMOL/L (3.5-5.1); SODIUM 139 MMOL/L (135-145); TOTAL CARBON DIOXIDE 26.9 MMOL/L (24-32); eGFR 58 ML/MIN
[2021-09-11 15:00] VITALS: BP 144/45
[2021-09-11 19:30] VITALS: BP 100/54
--- NOTE | 2021-09-11 19:30 | NUR ---
pt has difficulty with urinal placement Addendum: 09/12/21 at 0134 by Jacqueline Mcfadden RN Amended: Links added.
--- NOTE | 2021-09-11 19:30 | NUR ---
pt states he has wound/ skin care done earlier today & does not want it done tonight Addendum: 09/12/21 at 0101 by Jacqueline Mcfadden RN Amended: Links added.
--- NOTE | 2021-09-11 19:30 | NUR ---
pt states he had wound care done late this afternoon by [facility] & does not want them to be done tonight
[2021-09-11] MEDS: insulin glargine (Lantus) pen - multi-dose SQ SCH (21:00)
--- NOTE | 2021-09-11 21:00 | NUR ---
pt refuses ramandeep; a1c at 5.5 Addendum: 09/11/21 at 2308 by Jacqueline Mcfaddne RN Amended: Links added.
[2021-09-11] MEDS: morphine 2 MG/ML inj. syringe IV PRN (21:28)
[2021-09-11 22:30] VITALS: BP 128/57
[2021-09-12] MEDS: morphine 2 MG/ML inj. syringe IV PRN (01:59)
[2021-09-12 02:00] VITALS: BP 119/63
[2021-09-12] MEDS ORDERED: metoprolol tartrate 1mg/ml inj IV ONE (06:10)
[2021-09-12 06:32] LABS: BASOPHILS % (AUTO) 0.2 % (0-1); EOSINOPHILS # (AUTO) 0.2 X10'3 (0-0.9); HEMATOCRIT 39.5 % (42.0-52.0); LYMPHOCYTES # (AUTO) 0.8 X10'3 (1.1-4.8); LYMPHOCYTES % (AUTO) 5.7 % (21-51); MEAN CORPUSCULAR HEMOGLOBIN 28.7 PG (27.0-31.0); MEAN CORPUSCULAR HGB CONC 32.8 g/dL (33.0-36.5); MEAN CORPUSCULAR VOLUME 87.3 FL (78-98); MEAN PLATELET VOLUME 8.5 FL (7.4-10.4); MONOCYTES # (AUTO) 0.7 X10'3 (0-0.9); MONOCYTES % (AUTO) 4.7 % (2-12); NEUTROPHILS % (AUTO) 88.4 % (42-75); PLATELET COUNT 132 X10'3 (140-440); RED BLOOD COUNT 4.53 X10'6 (4.70-6.10); RED CELL DISTRIBUTION WIDTH 13.5 % (11.5-14.5); WHITE BLOOD COUNT 14.7 X10'3 (4.5-11.0)
[2021-09-12 07:15] VITALS: BP 113/64
[2021-09-12 07:15] LABS: ANION GAP 10 (8-16); BLOOD UREA NITROGEN 15 MG/DL (7-18); BUN/CREATININE RATIO 13.8 (5.4-32.0); CALCIUM 7.7 MG/DL (8.5-10.1); CHLORIDE 105 MMOL/L (99-107); CREATININE 1.09 MG/DL (0.60-1.10); GLUCOSE 91 MG/DL (70-104); MAGNESIUM 1.7 MG/DL (1.5-2.4); POTASSIUM 3.8 MMOL/L (3.5-5.1); SODIUM 141 MMOL/L (135-145); TOTAL CARBON DIOXIDE 25.9 MMOL/L (24-32); eGFR 67 ML/MIN
[2021-09-12] MEDS: normal saline 1000ml 1,000 ML IV SCH ×2 (07:43→17:00)
[2021-09-12] MEDS: cefTRIAXone 1g/NS 100ml IVPB 100 ML IV SCH (07:43)
[2021-09-12] MEDS: K and/or MAG REPLACEMENT MC SCH ×2 (07:43→20:00)
[2021-09-12] MEDS ORDERED: metoprolol succinate 25mg (24-HOUR) SR. Tablet PO SCH (08:00)
[2021-09-12 12:00] VITALS: BP 126/60
--- NOTE | 2021-09-12 12:16 | NUR ---
PAGER ID: [phone] MESSAGE: [id number] Johnny Bautista: wasn't able to catch you on rounds. wanted to make you aware the pt was in Afib early this AM and converted back to SR. His med rec needs to be addressed. and he is refusing his accuchecks. thanks! laith [phone]
[2021-09-12 16:00] VITALS: BP 134/67
--- NOTE | 2021-09-12 18:25 | NUR ---
Problems reprioritized. Patient report given, questions answered & plan of care reviewed with KELSEY Joyce.
[2021-09-12] MEDS: acetaminophen 325mg tablet PO PRN (19:17)
[2021-09-12] MEDS: insulin glargine (Lantus) pen - multi-dose SQ SCH (21:00)
[2021-09-12 22:00] VITALS: BP 125/72
[2021-09-12] MEDS: vancomycin/NS 1 GM ADD-VANTAGE 250 ML IV SCH (23:30)
[2021-09-12] MEDS ORDERED: VANCOMYCIN LEVEL IV ONE (23:30)
[2021-09-13] MEDS: normal saline 1000ml 1,000 ML IV SCH ×2 (01:10→09:40)
[2021-09-13 02:00] VITALS: BP 120/72
[2021-09-13 06:00] VITALS: BP 122/69
--- NOTE | 2021-09-13 06:35 | NUR ---
Patient in room PCU 3018. I have received report from KELSEY Joyce and had the opportunity to ask questions and assume patient care.
[2021-09-13 06:50] LABS: BASOPHILS % (AUTO) 0.2 % (0-1); EOSINOPHILS # (AUTO) 0.2 X10'3 (0-0.9); EOSINOPHILS % (AUTO) 1.8 % (0-6); HEMATOCRIT 39.9 % (42.0-52.0); HEMOGLOBIN 13.4 g/dl (14.0-17.9); LYMPHOCYTES # (AUTO) 0.8 X10'3 (1.1-4.8); LYMPHOCYTES % (AUTO) 6.6 % (21-51); MEAN CORPUSCULAR HEMOGLOBIN 29.4 PG (27.0-31.0); MEAN CORPUSCULAR HGB CONC 33.5 g/dL (33.0-36.5); MEAN CORPUSCULAR VOLUME 87.8 FL (78-98); MEAN PLATELET VOLUME 8.2 FL (7.4-10.4); MONOCYTES # (AUTO) 0.8 X10'3 (0-0.9); MONOCYTES % (AUTO) 6.2 % (2-12); NEUTROPHILS # (AUTO) 10.4 X10'3 (1.8-7.7); NEUTROPHILS % (AUTO) 85.2 % (42-75); PLATELET COUNT 160 X10'3 (140-440); RED BLOOD COUNT 4.55 X10'6 (4.70-6.10); RED CELL DISTRIBUTION WIDTH 13.8 % (11.5-14.5); WHITE BLOOD COUNT 12.2 X10'3 (4.5-11.0)
[2021-09-13 06:55] LABS: ANION GAP 3 (8-16); BLOOD UREA NITROGEN 13 MG/DL (7-18); BUN/CREATININE RATIO 13.4 (5.4-32.0); CALCIUM 8.3 MG/DL (8.5-10.1); CHLORIDE 108 MMOL/L (99-107); CREATININE 0.97 MG/DL (0.60-1.10); GLUCOSE 100 MG/DL (70-104); MAGNESIUM 1.9 MG/DL (1.5-2.4); POTASSIUM 3.7 MMOL/L (3.5-5.1); SODIUM 139 MMOL/L (135-145); TOTAL CARBON DIOXIDE 28.1 MMOL/L (24-32); eGFR 77 ML/MIN
[2021-09-13] MEDS: cefTRIAXone 1g/NS 100ml IVPB 100 ML IV SCH (07:39)
[2021-09-13] MEDS: K and/or MAG REPLACEMENT MC SCH ×2 (08:00→18:57)
[2021-09-13] MEDS ORDERED: traMADol 50MG tablet PO PRN (09:50)
[2021-09-13] MEDS: methylPREDNISolone sod succ/PF 40mg inj. IV SCH ×2 (10:57→19:48)
[2021-09-13 11:00] VITALS: BP 125/66
[2021-09-13] MEDS ORDERED: albuterol 2.5 MG/3 ML nebule NEB PRN (11:00)
[2021-09-13] MEDS: vancomycin/NS 1 GM ADD-VANTAGE 250 ML IV SCH ×2 (12:34→23:59)
[2021-09-13 15:00] VITALS: BP 112/60
[2021-09-13 18:00] VITALS: BP 122/55
--- NOTE | 2021-09-13 18:26 | NUR ---
Problems reprioritized. Patient report given, questions answered & plan of care reviewed with NENA Celeste.
[2021-09-13 22:00] VITALS: BP 124/61
[2021-09-13] MEDS ORDERED: VANCOMYCIN LEVEL IV ONE (23:30)
[2021-09-14] MEDS: normal saline 1000ml 1,000 ML IV SCH (00:26)
[2021-09-14 02:00] VITALS: BP 101/58
--- NOTE | 2021-09-14 04:38 | NUR ---
Agreed with the physical assessment documented at 199909/13/2021.
[2021-09-14 06:00] VITALS: BP 127/69
--- NOTE | 2021-09-14 06:34 | NUR ---
Problems reprioritized. Patient report given, questions answered & plan of care reviewed with cynthia.
[2021-09-14 06:56] LABS: ALBUMIN 2.2 G/DL (3.4-5.0); ANION GAP 9 (8-16); BLOOD UREA NITROGEN 17 MG/DL (7-18); BUN/CREATININE RATIO 18.7 (5.4-32.0); CALCIUM 8.7 MG/DL (8.5-10.1); CHLORIDE 106 MMOL/L (99-107); CREATININE 0.91 MG/DL (0.60-1.10); GLUCOSE 133 MG/DL (70-104); MAGNESIUM 2.3 MG/DL (1.5-2.4); POTASSIUM 4.4 MMOL/L (3.5-5.1); SODIUM 145 MMOL/L (135-145); TOTAL CARBON DIOXIDE 30.4 MMOL/L (24-32); eGFR 82 ML/MIN
[2021-09-14 07:02] LABS: BASOPHILS % (AUTO) 0.2 % (0-1); EOSINOPHILS % (AUTO) 0 % (0-6); HEMATOCRIT 45.6 % (42.0-52.0); HEMOGLOBIN 15.1 g/dl (14.0-17.9); LYMPHOCYTES # (AUTO) 0.8 X10'3 (1.1-4.8); LYMPHOCYTES % (AUTO) 5.9 % (21-51); MEAN CORPUSCULAR HEMOGLOBIN 28.8 PG (27.0-31.0); MEAN CORPUSCULAR HGB CONC 33.1 g/dL (33.0-36.5); MEAN CORPUSCULAR VOLUME 86.8 FL (78-98); MEAN PLATELET VOLUME 8.7 FL (7.4-10.4); MONOCYTES # (AUTO) 0.3 X10'3 (0-0.9); MONOCYTES % (AUTO) 2.5 % (2-12); NEUTROPHILS # (AUTO) 12.4 X10'3 (1.8-7.7); NEUTROPHILS % (AUTO) 91.4 % (42-75); PLATELET COUNT 202 X10'3 (140-440); RED BLOOD COUNT 5.25 X10'6 (4.70-6.10); RED CELL DISTRIBUTION WIDTH 13.6 % (11.5-14.5); WHITE BLOOD COUNT 13.5 X10'3 (4.5-11.0)
[2021-09-14] MEDS: cefTRIAXone 1g/NS 100ml IVPB 100 ML IV SCH (07:53)
[2021-09-14] MEDS: methylPREDNISolone sod succ/PF 40mg inj. IV SCH ×2 (07:53→23:11)
[2021-09-14] MEDS: K and/or MAG REPLACEMENT MC SCH ×2 (08:00→20:00)
[2021-09-14 11:00] VITALS: BP 117/57
--- NOTE | 2021-09-14 12:39 | NUR ---
Paged Dr. Ortega regarding pt having runs of Afib with HR of 130s. Currently back in SR. PAGER ID: [phone] MESSAGE: [id number], Michele Amado. Patient has been having a few short runs of afib. HR goes to 130s. But then converts back to SR. [facility] 5441.
[2021-09-14] MEDS: VANCOmycin 1250MG/NS 250ml Bag 250 ML IV SCH ×2 (13:30→23:11)
[2021-09-14 15:00] VITALS: BP 138/75
[2021-09-14 18:00] VITALS: BP 111/55
--- NOTE | 2021-09-14 18:20 | NUR ---
Patient in room U 3018. I have received report from KELSEY Liz and had the opportunity to ask questions and assume patient care. Addendum: 09/14/21 at 1820 by Erin Mills RN Amended: Links added.
--- NOTE | 2021-09-14 18:23 | NUR ---
Patient in room U 3018. I have received report from KELSEY MASTERSON and had the opportunity to ask questions and assume patient care. Addendum: 09/14/21 at 1826 by Erin Mills RN Amended: Links added.
[2021-09-14 22:00] VITALS: BP 120/63
[2021-09-15 02:00] VITALS: BP 133/72
[2021-09-15] MEDS: cefTRIAXone 1g/NS 100ml IVPB 100 ML IV SCH ×3 (03:24→20:58)
[2021-09-15] MEDS: acetaminophen 325mg tablet PO PRN (05:52)
[2021-09-15] MEDS: normal saline 1000ml 1,000 ML IV SCH (05:53)
[2021-09-15 06:00] VITALS: BP 135/76
--- NOTE | 2021-09-15 06:03 | NUR ---
MEDICATED WITH TYLENOL FOR HEADACHE.
[2021-09-15 06:31] LABS: BASOPHILS % (AUTO) 0.2 % (0-1); EOSINOPHILS % (AUTO) 0.1 % (0-6); HEMATOCRIT 46.1 % (42.0-52.0); HEMOGLOBIN 15.2 g/dl (14.0-17.9); LYMPHOCYTES # (AUTO) 1.1 X10'3 (1.1-4.8); LYMPHOCYTES % (AUTO) 5.6 % (21-51); MEAN CORPUSCULAR HGB CONC 32.9 g/dL (33.0-36.5); MEAN CORPUSCULAR VOLUME 88.2 FL (78-98); MONOCYTES # (AUTO) 0.7 X10'3 (0-0.9); MONOCYTES % (AUTO) 3.3 % (2-12); NEUTROPHILS # (AUTO) 17.8 X10'3 (1.8-7.7); NEUTROPHILS % (AUTO) 90.8 % (42-75); PLATELET COUNT 229 X10'3 (140-440); RED BLOOD COUNT 5.23 X10'6 (4.70-6.10); RED CELL DISTRIBUTION WIDTH 13.5 % (11.5-14.5); WHITE BLOOD COUNT 19.6 X10'3 (4.5-11.0)
--- NOTE | 2021-09-15 06:38 | NUR ---
Problems reprioritized. Patient report given, questions answered & plan of care reviewed with KELSEY PATEL. Addendum: 09/15/21 at 0642 by Erin Mills RN Amended: Links added.
[2021-09-15 06:43] LABS: ANION GAP 7 (8-16); BLOOD UREA NITROGEN 26 MG/DL (7-18); BUN/CREATININE RATIO 27.1 (5.4-32.0); CALCIUM 8.5 MG/DL (8.5-10.1); CHLORIDE 107 MMOL/L (99-107); CREATININE 0.96 MG/DL (0.60-1.10); GLUCOSE 137 MG/DL (70-104); POTASSIUM 4.6 MMOL/L (3.5-5.1); SODIUM 142 MMOL/L (135-145); TOTAL CARBON DIOXIDE 28.1 MMOL/L (24-32); eGFR 77 ML/MIN
[2021-09-15] MEDS: K and/or MAG REPLACEMENT MC SCH ×2 (07:54→20:00)
[2021-09-15] MEDS: methylPREDNISolone sod succ/PF 40mg inj. IV SCH (08:28)
--- NOTE | 2021-09-15 09:09 | NUR ---
Reassessment: Carb control diet has appropriately been d/c and pt continues on Heart Healthy diet w/ mostly 100% intake of meals meeting est nutrient needs at this time. Will provide double protein WB breakfast for satiety. [facility] 09/11. Will continue to monitor. Recs: 1. Continue Heart Healthy diet as tolerated 2. Double protein WB for satiety 3. Bowel care per rx 4. Scaled wts Addendum: 09/15/21 at [address] Amended: Links added.
[2021-09-15] MEDS: VANCOmycin 1250MG/NS 250ml Bag 250 ML IV SCH (13:18)
[2021-09-15 17:00] VITALS: BP 138/73
[2021-09-15 18:00] VITALS: BP 129/59
--- NOTE | 2021-09-15 18:55 | NUR ---
Patient in room U 3018. I have received report from KELSEY PATEL and had the opportunity to ask questions and assume patient care. Addendum: 09/15/21 at 1914 by Erin Mills RN Amended: Links added.
--- NOTE | 2021-09-15 18:57 | NUR ---
Report given back to Erin COLE, patient in bed. Tearful at times over his cat. Pt oxygenating well on room air. No current distress or concerns at this time.
[2021-09-15 22:00] VITALS: BP 129/68
[2021-09-15] MEDS ORDERED: VANCOMYCIN LEVEL IV ONE (23:30)
[2021-09-16] MEDS: normal saline 1000ml 1,000 ML IV SCH (00:49)
[2021-09-16] MEDS: VANCOmycin 1250MG/NS 250ml Bag 250 ML IV SCH (00:49)
[2021-09-16 02:00] VITALS: BP 126/67
--- NOTE | 2021-09-16 03:33 | NUR ---
COMPLAINT OF PAIN MEDICATED WITH TRAMADOL.
[2021-09-16 06:00] VITALS: BP 134/67
--- NOTE | 2021-09-16 06:15 | NUR ---
Patient in room PCU 3018. I have received report from Erin COLE and had the opportunity to ask questions and assume patient care.
--- NOTE | 2021-09-16 07:05 | NUR ---
Problems reprioritized. Patient report given, questions answered & plan of care reviewed with KELSEY GOODSON. Addendum: 09/16/21 at 0706 by Erin Mills RN Amended: Links added.
[2021-09-16] MEDS: K and/or MAG REPLACEMENT MC SCH (08:00)
[2021-09-16] MEDS ORDERED: predniSONE 20 mg tablet PO SCH (08:00)
[2021-09-16] MEDS: cefTRIAXone 1g/NS 100ml IVPB 100 ML IV SCH (09:05)
[2021-09-16 11:19] VITALS: BP 152/86
[2021-09-16] MEDS ORDERED: AMOX-117 PO (11:43)
[2021-09-16] MEDS ORDERED: PRED20TA PO (11:44)
[2021-09-16] MEDS ORDERED: IPRA3AMP31 IH ×2 (11:45)
[2021-09-16] MEDS ORDERED: vancomycin/NS 1 GM ADD-VANTAGE 250 ML IV SCH (12:00)
[2021-09-17] MEDS ORDERED: VANCOMYCIN LEVEL IV ONE (23:30)
[2021-09-19] MEDS ORDERED: LISI20TA28 PO (02:00)
[2021-09-19] MEDS ORDERED: IPRA3AMP31 IH (03:04)
[2021-09-24] MEDS ORDERED: LACT1CAP26 PO (11:57)
[2021-09-24] MEDS ORDERED: NYSPWD TP (11:57)
[2021-09-24] MEDS ORDERED: FURO20TA4 PO (11:57)
[2021-09-24] MEDS ORDERED: LINE600T12 PO (11:57)
[2021-09-24] MEDS ORDERED: POTA10TA37 PO (11:57)
[2021-09-24] MEDS ORDERED: PANT40TA54 PO (11:57)
== END 2021-09-16 14:26 | disposition home or self-care (01) | DRG 871 ==
LOC: ER 03:44 → ED HOLD 14:27 → PCU 3S 20:00
PROVIDERS: ADMIT Internal Medicine; ATTEND Internal Medicine
DX: A41.9 Sepsis, unspecified organism (principal); N17.0 Acute kidney failure with tubular necrosis; L03.116 Cellulitis of left lower limb; L97.929 Non-pressure chronic ulcer of unspecified part of left lower leg with unspecified severity; Z68.43 Body mass index [BMI] 50.0-59.9, adult; N39.0 Urinary tract infection, site not specified; K40.90 Unilateral inguinal hernia, without obstruction or gangrene, not specified as recurrent; M17.11 Unilateral primary osteoarthritis, right knee; E11.621 Type 2 diabetes mellitus with foot ulcer; N32.89 Other specified disorders of bladder; Z20.822 Contact with and (suspected) exposure to COVID-19; T38.0X5A Adverse effect of glucocorticoids and synthetic analogues, initial encounter; Z60.2 Problems related to living alone; R21 Rash and other nonspecific skin eruption; I83.009 Varicose veins of unspecified lower extremity with ulcer of unspecified site; K80.20 Calculus of gallbladder without cholecystitis without obstruction; E66.01 Morbid (severe) obesity due to excess calories; F32.A Depression, unspecified; G89.29 Other chronic pain; I10 Essential (primary) hypertension; I25.10 Atherosclerotic heart disease of native coronary artery without angina pectoris; J43.9 Emphysema, unspecified; K21.9 Gastro-esophageal reflux disease without esophagitis; I25.2 Old myocardial infarction; Z87.891 Personal history of nicotine dependence; Z90.49 Acquired absence of other specified parts of digestive tract; Z79.899 Other long term (current) drug therapy; Z79.82 Long term (current) use of aspirin; Y92.89 Other specified places as the place of occurrence of the external cause
CPT/HCPCS: 36415; 71045; 71250; 74176; 80048; 80053; 80202; 81001; 82948; 83036; 83605; 83735; 84145; 85025; 87040; 87077; 87081; 87088; 87186; 87502; 87503; 87635; 93306; 94640; 94760; 97116; 97161; 97530; 99291; A4349; A4357; A4649; A6154; A6223; A6446; A6449; C9803; G0378; J0696; J1815; J2270; J2543; J2765; J2920; J3370; J3490; J7030; J7512

== ENCOUNTER 2021-10-24 15:50 | Emergency (ER) | payer BC, MEDICAID ==
[~2021-10-24] VITALS: Ht 170.2 cm; Wt 138.2 kg
[~2021-10-24 15:50] MED LIST changes: -ASPI-1265 PO; +DILT30TA10 PO; -DILT30TA2 PO; +FURO20TA4 PO; +IPRA3AMP31 IH; +LACT1CAP26 PO; +LINE600T12 PO; +NYSPWD TP; +PANT40TA54 PO; +POTA10TA37 PO
[2021-10-24 16:25] LABS: BASOPHILS % (AUTO) 0.5 % (0-1); EOSINOPHILS # (AUTO) 0.1 X10'3 (0-0.9); HEMATOCRIT 36.5 % (42.0-52.0); HEMOGLOBIN 12.6 g/dl (14.0-17.9); LYMPHOCYTES # (AUTO) 1.3 X10'3 (1.1-4.8); LYMPHOCYTES % (AUTO) 12.8 % (21-51); MEAN CORPUSCULAR HEMOGLOBIN 29.2 PG (27.0-31.0); MEAN CORPUSCULAR HGB CONC 34.5 g/dL (33.0-36.5); MEAN CORPUSCULAR VOLUME 84.7 FL (78-98); MONOCYTES % (AUTO) 9.7 % (2-12); NEUTROPHILS # (AUTO) 7.6 X10'3 (1.8-7.7); PLATELET COUNT 235 X10'3 (140-440); RED BLOOD COUNT 4.31 X10'6 (4.70-6.10); RED CELL DISTRIBUTION WIDTH 13.6 % (11.5-14.5)
[2021-10-24 16:34] LABS: ALANINE AMINOTRANSFERASE 14 U/L (12-78); ALBUMIN 2.9 G/DL (3.4-5.0); ALBUMIN/GLOBULIN RATIO 0.6 (1.1-1.5); ALKALINE PHOSPHATASE 50 IU/L (46-116); ANION GAP 8 (8-16); ASPARTATE AMINO TRANSFERASE 23 U/L (10-37); BILIRUBIN,TOTAL 1.9 MG/DL (0.1-1.0); BLOOD UREA NITROGEN 17 MG/DL (7-18); CALCIUM 8.6 MG/DL (8.5-10.1); CHLORIDE 107 MMOL/L (99-107); CREATININE 1.31 MG/DL (0.60-1.10); GLUCOSE 132 MG/DL (70-104); POTASSIUM 3.6 MMOL/L (3.5-5.1); SODIUM 142 MMOL/L (135-145); TOTAL CARBON DIOXIDE 27.1 MMOL/L (24-32); TOTAL PROTEIN 7.7 G/DL (6.4-8.2); eGFR 54 ML/MIN
[2021-10-24] MEDS ORDERED: vancomycin/NS 1 GM ADD-VANTAGE 250 ML IV ONE (18:45)
[2021-10-24] MEDS ORDERED: CefTRIAXone 2gm/D5W 50ml BAG 50 ML IV ONE (18:45)
[2021-10-24] MEDS ORDERED: SULF1TAB45 PO (20:03)
[2021-10-24] MEDS ORDERED: CEPH250T PO (20:03)
[2021-10-24] MEDS ORDERED: acetaminophen 325mg tablet PO ONE (23:20)
--- NOTE | 2021-10-24 23:26 | NUR ---
CALLED [facility] FOR PT TRANSPORT, ETA 5MIN
[2021-10-25] MEDS ORDERED: acetaminophen 325mg tablet PO ONE (09:15)
--- NOTE | 2021-10-25 09:30 | NUR ---
Beddings changed,pt repositoned and changed into a gown,requesting tylenol for sciatic pain,Dr. Iraheta aware.Awaiting for sw to see pt.
--- NOTE | 2021-10-25 10:00 | NUR ---
dressing to left lower leg wound applied.Pt reports he has appt with wound care on Thursday.
[2021-10-25] MEDS ORDERED: CLOT15CR73 TP ×2 (10:48→11:08)
--- NOTE | 2021-10-25 12:17 | NUR ---
[facility] to pick him up at 1430,,ot aware, requesting a tray, order obtained from Dr. Iraheta.
--- NOTE | 2021-10-25 13:47 | NUR ---
[facility] HERE TO TRANSPORT PT HOME. AFTER CALLING THEIR HOSE BUILDER, [facility] HAVE REFUSED TO TRANSPORT PT FOR CONCERNS OF PT BEING ABLE TO AMBULATE INTO HOME AND UP STAIRS DISPITE PT STATING THAT HE AMBULATES WELL IN HIS HOME AND UP AND DOWN STAIRS WITHOUT HIS WALKER. STUNT MAN, MIGUEL ONEIL AND DR HERNANDEZ NOTIFIED. 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 DARLINE FROM CALLED [facility] AND WAS INFORMED THAT THEY HAVE HAD ISSUES WITH THE PT'S HOME NOT BEING WELL KEPT, WITH PT FALLING THROUGH FLOOR BOARDS AND NOT BEING ABLE TO GET HIM OUT. DARLINE INFORMED [facility] DIRECTOR THAT THE PT'S HOME HAS BEEN REPAIRD, BUT THEY STILL DID NOT WANT TO TRANSPORT PT HOME DUE TO POSSIBLE ISSUES. [facility] CONTACE DC TABLEAU LEAD AND THEY ARE WORKING ON GETTING [facility] TRANSPORT OR [facility] INVOLVED TO GET PT HOME.
[2021-10-25 16:01] VITALS: BP 107/65
== END 2021-10-25 15:59 | disposition home or self-care (01) ==
LOC: ER 15:51
DX: L03.116 Cellulitis of left lower limb (principal); L03.115 Cellulitis of right lower limb; I11.9 Hypertensive heart disease without heart failure; J43.9 Emphysema, unspecified; K21.9 Gastro-esophageal reflux disease without esophagitis; E11.9 Type 2 diabetes mellitus without complications; G89.29 Other chronic pain; F32.A Depression, unspecified; Z79.899 Other long term (current) drug therapy; Z79.2 Long term (current) use of antibiotics
CPT/HCPCS: 36415; 80053; 82948; 84145; 85025; 96365; 96375; 99285; J0696; J3370

== ENCOUNTER 2021-11-13 17:43 | Emergency (ER) | payer BC, MEDICAID ==
[~2021-11-13] VITALS: Ht 170.2 cm; Wt 138.6 kg
[~2021-11-13 17:43] MED LIST changes: +CLOT15CR73 TP; -LINE600T12 PO; +POTA-206 PO; -POTA10TA37 PO
[2021-11-13 18:04] VITALS: BP 176/81
[2021-11-13] MEDS ORDERED: morphine 4 MG/ML inj SYRINge IV ONE (20:50)
[2021-11-13 21:14] LABS: BASOPHILS # (AUTO) 0.1 X10'3 (0-0.2); BASOPHILS % (AUTO) 0.8 % (0-1); EOSINOPHILS # (AUTO) 0.2 X10'3 (0-0.9); EOSINOPHILS % (AUTO) 2.5 % (0-6); HEMATOCRIT 37.7 % (42.0-52.0); HEMOGLOBIN 12.7 g/dl (14.0-17.9); LYMPHOCYTES # (AUTO) 1.5 X10'3 (1.1-4.8); MEAN CORPUSCULAR HEMOGLOBIN 29.5 PG (27.0-31.0); MEAN CORPUSCULAR HGB CONC 33.6 g/dL (33.0-36.5); MEAN CORPUSCULAR VOLUME 87.7 FL (78-98); MEAN PLATELET VOLUME 7.3 FL (7.4-10.4); MONOCYTES # (AUTO) 0.8 X10'3 (0-0.9); MONOCYTES % (AUTO) 9.2 % (2-12); NEUTROPHILS # (AUTO) 6.4 X10'3 (1.8-7.7); NEUTROPHILS % (AUTO) 70.5 % (42-75); PLATELET COUNT 192 X10'3 (140-440); WHITE BLOOD COUNT 9.1 X10'3 (4.5-11.0)
[2021-11-13 21:29] LABS: ALANINE AMINOTRANSFERASE 21 U/L (12-78); ALBUMIN 3.1 G/DL (3.4-5.0); ALBUMIN/GLOBULIN RATIO 0.7 (1.1-1.5); ALKALINE PHOSPHATASE 51 IU/L (46-116); ANION GAP 9 (8-16); ASPARTATE AMINO TRANSFERASE 20 U/L (10-37); BILIRUBIN,TOTAL 1.6 MG/DL (0.1-1.0); BLOOD UREA NITROGEN 18 MG/DL (7-18); BUN/CREATININE RATIO 16.8 (5.4-32.0); CALCIUM 8.7 MG/DL (8.5-10.1); CHLORIDE 105 MMOL/L (99-107); CREATININE 1.07 MG/DL (0.60-1.10); GLUCOSE 86 MG/DL (70-104); POTASSIUM 3.5 MMOL/L (3.5-5.1); SODIUM 142 MMOL/L (135-145); TOTAL CARBON DIOXIDE 27.7 MMOL/L (24-32); TOTAL PROTEIN 7.4 G/DL (6.4-8.2); eGFR 68 ML/MIN
[2021-11-13] MEDS ORDERED: morphine 4 MG/ML inj SYRINge IM ONE (21:45)
== END 2021-11-14 01:25 | disposition home or self-care (01) ==
LOC: ER 17:43
DX: S90.32XD Contusion of left foot, subsequent encounter (principal); I11.9 Hypertensive heart disease without heart failure; J43.9 Emphysema, unspecified; K21.9 Gastro-esophageal reflux disease without esophagitis; E11.9 Type 2 diabetes mellitus without complications; F32.A Depression, unspecified; Z90.49 Acquired absence of other specified parts of digestive tract; G89.29 Other chronic pain; Z79.899 Other long term (current) drug therapy; W18.39XD Other fall on same level, subsequent encounter
CPT/HCPCS: 73620; 80053; 85025; 85651; 86140; 96372; 99284; J2270; A6446; A6449

== ENCOUNTER 2021-11-15 15:24 | Emergency (ER) | payer BC, MEDICAID ==
[~2021-11-15] VITALS: Ht 170.2 cm; Wt 138.6 kg
[2021-11-15 15:27] VITALS: BP 104/60
== END 2021-11-15 20:55 | disposition home or self-care (01) ==
LOC: ER 15:25
DX: M25.572 Pain in left ankle and joints of left foot (principal); M25.561 Pain in right knee; M25.562 Pain in left knee; I11.9 Hypertensive heart disease without heart failure; J43.9 Emphysema, unspecified; K21.9 Gastro-esophageal reflux disease without esophagitis; E11.9 Type 2 diabetes mellitus without complications; G89.29 Other chronic pain; Z90.49 Acquired absence of other specified parts of digestive tract; Z79.899 Other long term (current) drug therapy
CPT/HCPCS: 36415; 85651; 99283; A6223; A6449